=== PATIENT | male | born 1955 | race Caucasian/White ===

== ENCOUNTER 2016-08-17 11:41 | Outpatient (CLI) | payer OTHER ==
[2013-09-02 10:15] VITALS: BMI 22.9
--- NOTE | 2016-08-17 13:00 | DI ---
EXAM: Five view cervical spine COMPARISON: None HISTORY: Neck pain FINDINGS: There is no acute fracture or subluxation. The vertebrae have normal height and alignment. The disk spaces are well maintained. There is some mild degenerative change noted otherwise. Obliq ue views demonstrate widely patent neural foramina The prevertebral soft tissues are unremarkable. The facets maintain appropriate alignment. The dens is intact on the open mouth view. The posterio r right fifth rib demonstrates either postoperative or post traumatic changes. IMPRESSION: 1. Mild degenerative changes of the cervical spine as described. No acute abnormality. 2. Postoperative or post-traumatic changes involving the right fifth rib.
--- NOTE | 2016-08-17 13:02 | DI ---
EXAM: Four views of the lumbar spine HISTORY: Arthropathy with previous lumbar spine surgery. COMPARISON: CT abdomen pelvis 03/13/2010 FINDINGS: There is posterior fusion hardware screws from L4-S1. There is vertebral body stabilizati on shaunna in the sacrum extending up through L4 as well. There is no evidence of hardware fracture or loosening. There is mild scattered facet arthropathy and anterior osteophyte formation. There is q uestionable narrowing of the neural foramen at L4-L5 and L5-S1. IMPRESSION: 1. Fusion hardware and surgical hardware from L4-S1 with no evidence of hardware loosening or fract ure. 2. Scattered degenerative disease in the lower lumbar spine with neural foraminal narrowing noted L 5-S1 and questionable neural foraminal narrowing at L4-L5.
== END 2016-08-17 11:42 | disposition home or self-care (01) ==
LOC: RAD 11:41
PROVIDERS: ATTEND Pain Medicine Interventional Pain Medicine
DX: M51.16 Intervertebral disc disorders with radiculopathy, lumbar region (principal); M51.17 Intervertebral disc disorders with radiculopathy, lumbosacral region; M47.812 Spondylosis without myelopathy or radiculopathy, cervical region; M47.813 Spondylosis without myelopathy or radiculopathy, cervicothoracic region; M96.1 Postlaminectomy syndrome, not elsewhere classified; M50.31 Other cervical disc degeneration, high cervical region; M50.33 Other cervical disc degeneration, cervicothoracic region; M51.36 Other intervertebral disc degeneration, lumbar region; M51.37 Other intervertebral disc degeneration, lumbosacral region; M50.320 Other cervical disc degeneration, mid-cervical region, unspecified level

== ENCOUNTER 2017-01-25 10:13 | Inpatient (IN) ==
[2017-01-25] MEDS ORDERED: ATROPINE SULFATE PFS IVP PRN (10:36)
[2017-01-25] MEDS ORDERED: VISTARIL INJ IM PRN (10:36)
[2017-01-25] MEDS ORDERED: TYLENOL PO PRN (10:36)
[2017-01-25] MEDS ORDERED: NITROSTAT SL PRN (10:36)
[2017-01-25] MEDS ORDERED: LOMOTIL PO PRN (10:53)
[2017-01-25 11:12] LABS: ABG BASE EXCESS 0 (-2.0-2.0); ABG HCO3 23.6 (22.0-26.0); ABG PCO2 34.2 mmHg (35-45); ABG PH 7.446 (7.35-7.45); ABG TCO2 25 (22.0-28.0)
[2017-01-25 11:24] VITALS: BMI 23.3
[2017-01-25 11:29] LABS: BASOPHILS % (AUTO) 0.3 % (0.0-3.0); EOSINOPHILS # (AUTO) 0.2 K/ul (0.0-0.7); EOSINOPHILS % (AUTO) 1.9 % (0.0-7.0); HEMATOCRIT 38.3 % (42.0-52.0); HEMOGLOBIN 13.8 g/dl (14.0-18.0); IMMATURE GRANULOCYTE % (AUTO) 0.4 % (0.0-5.0); LYMPHOCYTES % (AUTO) 29.4 (10.0-50.0); MEAN CORPUSCULAR HEMOGLOBIN 33.7 pg (27.0-31.0); MEAN CORPUSCULAR VOLUME 93.6 fl (80.0-94.0); MONOCYTES % (AUTO) 10.3 (0-10); NEUTROPHILS # (AUTO) 5.8 K/ul (2.0-6.9); NEUTROPHILS % (AUTO) 57.7; PLATELET COUNT 223 10^3/uL (140-440); RED BLOOD COUNT 4.09 10^6/ul (4.70-6.10); WHITE BLOOD COUNT 10.09 K/ul (4.2-10.2)
[2017-01-25] MEDS: ROCEPHIN 1 GM in SODIUM CHLORIDE 50 ML IV SCH (11:32)
[2017-01-25] MEDS: DEXTROSE 5%-1/2NS IV SOLUTION 1,000 ML IV SCH ×2 (11:32→22:25)
[2017-01-25] MEDS: ZOFRAN 4 MG/2 ML IVP PRN ×2 (11:58→20:53)
[2017-01-25] MEDS ORDERED: NON-FORMULARY MEDICATION (Citalopram Hydrobromide [Celexa] 40 MG) PO SCH ×22 (12:00)
[2017-01-25 12:08] LABS: ALANINE AMINOTRANSFERASE 7 U/L (12-78); ALBUMIN 3.5 g/dL (3.4-5.0); ALBUMIN/GLOBULIN RATIO 1.35; ALKALINE PHOSPHATASE 53 U/L (56-119); ANION GAP 10.2; ASPARTATE AMINO TRANSFERASE 8 U/L (15-37); BILIRUBIN,TOTAL 0.44 mg/dL (0.00-1.20); BLOOD UREA NITROGEN 10 mg/dL (7-18); BUN/CREATININE RATIO 12.34; CARBON DIOXIDE 26 mmol/L (21-32); CHLORIDE 106 mmol/L (98-107); CREATINE KINASE 21 U/L; CREATININE 0.81 mg/dL (0.60-1.10); GLUCOSE 94 mg/dL (70-100); MYOGLOBIN 15 ng/ml; POTASSIUM 3.2 mmol/L (3.5-5.1); SODIUM 139 mmol/L (136-145); TOTAL PROTEIN 6.1 g/dL (6.4-8.2)
[2017-01-25] MEDS: PLAVIX PO SCH (14:26)
--- NOTE | 2017-01-25 15:07 | DI ---
EXAM: Single AP view of the chest HISTORY: Chronic obstructive pulmonary disease. COMPARISON: Chest x-ray 09/02/2013 FINDINGS: Cardiomediastinal silhouette is unchanged. There is no pneumothorax. There is blunting t he costophrenic angles bilaterally. There is no acute consolidation, nodule or mass. The osseous s tructures are unchanged. IMPRESSION: 1. Blunting of the costophrenic angles may represent pleural parenchymal scarring versus small effu sions. 2. No acute consolidation.
[2017-01-25 16:30] LABS: BILIRUBIN,URINE Negative (NEGATIVE); KETONES,URINE Negative (NEGATIVE); LEUKOCYTE ESTERASE ,URINE Negative (NEGATIVE); NITRITE,URINE Negative (NEGATIVE); PROTEIN,URINE Negative (NEGATIVE); URINE, BLOOD 1+ (NEGATIVE)
[2017-01-25 16:31] LABS: ADD URINE MICROSCOPIC YES
[2017-01-25] MEDS: MORPHINE 4 MG/ML SYRINGE IVP PRN (17:54)
[2017-01-25 19:28] LABS: CREATINE KINASE 19 U/L; MYOGLOBIN 16 ng/ml
[2017-01-25] MEDS: ABILIFY PO SCH (20:21)
[2017-01-25] MEDS: MINIPRESS PO SCH (20:22)
[2017-01-25] MEDS: LIPITOR PO SCH (20:22)
[2017-01-25] MEDS ORDERED: NON-FORMULARY MEDICATION (Prazosin Hcl [Prazosin Hcl] 2 MG) PO SCH (21:00)
[2017-01-25] MEDS ORDERED: ARIPIPRAZOLE 20 MG PO SCH (21:00)
[2017-01-26] MEDS: MORPHINE 4 MG/ML SYRINGE IVP PRN (01:03)
[2017-01-26 04:57] LABS: BASOPHILS % (AUTO) 0.4 % (0.0-3.0); EOSINOPHILS # (AUTO) 0.6 K/ul (0.0-0.7); EOSINOPHILS % (AUTO) 5.8 % (0.0-7.0); IMMATURE GRANULOCYTE % (AUTO) 0.3 % (0.0-5.0); LYMPHOCYTES # (AUTO) 4.1 K/uL (0.60-3.4); LYMPHOCYTES % (AUTO) 42.4 (10.0-50.0); MEAN CORPUSCULAR HEMOGLOBIN 33.6 pg (27.0-31.0); MEAN CORPUSCULAR HGB CONC 35.1 (31.8-35.4); MEAN CORPUSCULAR VOLUME 95.6 fl (80.0-94.0); MONOCYTES # (AUTO) 0.9 K/uL (0.4-2.0); MONOCYTES % (AUTO) 9.3 (0-10); NEUTROPHILS # (AUTO) 4.1 K/ul (2.0-6.9); NEUTROPHILS % (AUTO) 41.8; PLATELET COUNT 219 10^3/uL (140-440); RED BLOOD COUNT 3.87 10^6/ul (4.70-6.10); WHITE BLOOD COUNT 9.71 K/ul (4.2-10.2)
[2017-01-26 05:26] LABS: ALANINE AMINOTRANSFERASE < 6 U/L (12-78); ALBUMIN 3.2 g/dL (3.4-5.0); ALBUMIN/GLOBULIN RATIO 1.28; ALKALINE PHOSPHATASE 55 U/L (56-119); ANION GAP 13.6; ASPARTATE AMINO TRANSFERASE 8 U/L (15-37); BILIRUBIN,TOTAL 0.52 mg/dL (0.00-1.20); BLOOD UREA NITROGEN 6 mg/dL (7-18); BUN/CREATININE RATIO 7.31; CALCIUM 8.5 mg/dL (8.2-10.2); CARBON DIOXIDE 26 mmol/L (21-32); CHLORIDE 108 mmol/L (98-107); CREATININE 0.82 mg/dL (0.60-1.10); GLUCOSE 99 mg/dL (70-100); POTASSIUM 3.6 mmol/L (3.5-5.1); SODIUM 144 mmol/L (136-145); TOTAL PROTEIN 5.7 g/dL (6.4-8.2)
[2017-01-26] MEDS ORDERED: PROTONIX PO PRN (08:23)
[2017-01-26] MEDS ORDERED: PROTONIX PO STA (08:23)
[2017-01-26] MEDS: ASPIRIN EC PO SCH (08:26)
[2017-01-26] MEDS: ROCEPHIN 1 GM in SODIUM CHLORIDE 50 ML IV SCH (08:26)
[2017-01-26] MEDS: PLAVIX PO SCH (08:26)
[2017-01-26] MEDS: CELEXA PO SCH (08:26)
[2017-01-26] MEDS: VALIUM PO SCH ×3 (08:50→20:07)
[2017-01-26] MEDS: MS CONTIN PO SCH ×2 (08:50→20:06)
[2017-01-26] MEDS ORDERED: CELEXA PO SCH (09:00)
[2017-01-26] MEDS ORDERED: NON-FORMULARY MEDICATION (Morphine Sulfate [Morphine Sulfate Er] 60 MG) PO SCH (09:00)
--- NOTE | 2017-01-26 09:42 | PCM.PROG ---
Attending Provider: ATTENDING PROVIDER: Dr. SERENA MCCORMICK DATE OF SERVICE: 01/26/17 SUBJECTIVE: This 61 year old WHITE/ M was hospitalized 01/25/17. The patient is seen with Anika, Nurse Practitioner. The patient is somewhat better, alert, lying in bed. He has generalized achiness, some nausea during the night but no vomiting. No diarrhea. He feels weak and tired. Stools are negative for C. diff. REVIEW OF SYSTEMS: CONSTITUTIONAL: Fatique, weakness. No night sweats. No fever or chills. HEENT: Eyes: No visual changes. No eye pain. No eye discharge. ENT: No runny nose. No epistaxis. No sinus pain. No odynophagia. No congestion. RESPIRATORY: No cough, no congestion. No hemoptysis. CARDIOVASCULAR: No angina symptoms. No CHF symptoms. No atypical chest pain for CAD. No palpitations. No shortness of breath. GASTROINTESTINAL: Nausea. Diarrhea. No abdominal pain. No hematemesis. No hematochezia. GENITOURINARY: No urgency. No frequency. No dysuria. No hematuria. No obstructive symptoms. No discharge. No pain. No significant abnormal bleeding. MUSCULOSKELETAL: Generalized achiness. NEUROLOGICAL: Awake, alert, oriented to time, place and person. No headache. No neck pain. No syncope. No seizures. No dizziness. PSYCHIATRIC: Not anxious. No depression. No suicidal thoughts. No homicidal thoughts. SKIN: No rash. No lesions. No wounds. ENDOCRINE: No unexplained weight loss. No weight gain. HEMATOLOGIC/LYMPHATIC: No anemia. No purpura. No petechiae. No prolonged or excessive bleeding. No palpable lymph nodes. PHYSICAL EXAMINATION: GENERAL: The patient is awake, alert and oriented, lying in bed in no distress. VITAL SIGNS: Temperature 98.0 F, Pulse 78, Respiratory Rate 20, BP 136/89, Pulse Ox 100% HEENT: Head normocephalic, atraumatic. Eyes: Extraocular muscles are intact. Pupils are equal, round and reactive to light and accommodation. Ears: No lesions. Nose appeared normal. Throat: No exudate or erythema. NECK: Supple. No JVD, no carotid bruit. No lymphadenopathy or thyromegaly. LUNGS: Decreased bilateral breath sounds. Clear to auscultation. Percussion note normal. Chest symmetrical. HEART: S1, S2, no S3. No murmurs. No cyanosis or clubbing. No ascites. Pulses: Dorsalis pedis and posterior tibial pulses +1 to +2 both sides. ABDOMEN: Soft. Non-tender. Bowel sounds active. No CVA tenderness. No mass felt. EXTREMITIES: No edema. Full range of motion of all extremities, equal. NEUROLOGIC: No focal deficit. Cranial nerves II through XII are grossly intact. No headache, no double vision or headache. SKIN: Not dry. Intact. Turgor-normal. LYMPHATIC: No palpable lymph nodes/no lymphedema. MUSCULOSKELETAL: Normal joints with no swelling. Muscle tone is normal. LAB REVIEW: 01/26/17 04:30 01/26/17 04:30 01/26/17 04:30: WBC 9.71, RBC 3.87 L, Hgb 13.0 L, Hct 37.0 L, MCV 95.6 H, MCH 33.6 H, MCHC 35.1, RDW Coeff of Luzma 12.8, Plt Count 219, Immature Gran % (Auto) 0.3, Neut % (Auto) 41.8, Lymph % (Auto) 42.4, [place] % (Auto) 9.3, Eos % (Auto) 5.8, Baso % (Auto) 0.4, Immature Gran # (Auto) 0.0, Neut # 4.1, Lymph # 4.1 H, [place] # 0.9, Eos # 0.6, Baso # 0.0, Sodium 144, Potassium 3.6, Chloride 108 H, Carbon Dioxide 26, Anion Gap 13.6, BUN 6 L, Creatinine 0.82, Estimated GFR (MDRD ) 96.00, BUN/Creatinine Ratio 7.31, Glucose 99, Calcium 8.5, Total Bilirubin 0.52, AST 8 L, ALT < 6 L, Alkaline Phosphatase 55 L, Total Protein 5.7 L, Albumin 3.2 L, Globulin 2.5, Albumin/Globulin Ratio 1.28 01/25/17 18:45: Total Creatine Kinase 19, Myoglobin 16, Troponin I < 0.0100 01/25/17 14:35: Urine Color Yellow, Urine Clarity Clear, Urine pH 7.0, Ur Specific [place] 1.015, Urine Protein Negative, Urine Glucose (UA) Negative, Urine Ketones Negative, Urine Blood 1+, Urine Nitrite Negative, Urine Bilirubin Negative, Urine Urobilinogen 0.2, Ur Leukocyte Esterase Negative, Urine Microscopic RBC 2-5, Ur Squamous Epith Cells Not present 01/25/17 11:20: WBC 10.09, RBC 4.09 L, Hgb 13.8 L, Hct 38.3 L, MCV 93.6, MCH 33.7 H, MCHC 36.0 H, RDW Coeff of Luzma 12.3, Plt Count 223, Immature Gran % (Auto ) 0.4, Neut % (Auto) 57.7, Lymph % (Auto) 29.4, [place] % (Auto) 10.3 H, Eos % ( Auto) 1.9, Baso % (Auto) 0.3, Immature Gran # (Auto) 0.0, Neut # 5.8, Lymph # 3.0, [place] # 1.0, Eos # 0.2, Baso # 0.0, Sodium 139, Potassium 3.2 L, Chloride 106, Carbon Dioxide 26, Anion Gap 10.2, BUN 10, Creatinine 0.81, Estimated GFR ( MDRD) 98.00, BUN/Creatinine Ratio 12.34, Glucose 94, Calcium 9.0, Total Bilirubin 0.44, AST 8 L, ALT 7 L, Alkaline Phosphatase 53 L, Total Creatine Kinase 21, Myoglobin 15, Troponin I < 0.0100, Total Protein 6.1 L, Albumin 3.5, Globulin 2.6, Albumin/Globulin Ratio 1.35, TSH 0.782 01/25/17 11:00: Puncture Site R rad, O2 Saturation 97.0, ABG pH 7.446, ABG pCO2 34.2 L, ABG pO2 84.0 L, ABG HCO3 23.6, ABG Total CO2 25, ABG Base Excess 0, Robert Test +, FiO2 % 21.0 ASSESSMENT: 1. Dehydration 2. Acute gastroenteritis 3. COPD exacerbation PLAN: 1. Protonix 40 mg daily 2. Resume Valium 5 mg t.i.d. 3. Resume Morphine 60 mg p.o. b.i.d. 4. D/C IV Morphine 5. Continue iv fluids 6. BRAT diet Plan and coordination of the patient's care discussed in the presence of Hide Curer and nurse. CONDITION: Stable SCRIBED BY: CARMELO MOHAMUD Sub Arc Operator scribed while in presence of service performed by Dr. SERENA MCCORMICK/ANIKA CUELLAR APRN on 01/26/17 ([id number])
[2017-01-26] MEDS: DEXTROSE 5%-1/2NS IV SOLUTION 1,000 ML IV SCH (11:25)
--- NOTE | 2017-01-26 11:33 | HP ---
DATE OF SERVICE: 01/25/17 REASON FOR HOSPITALIZATION/HISTORY OF PRESENT ILLNESS: This is a 61-year-old male who presented to the office with vomiting times four days, unable to keep anything down, chills and fever. He has had diarrhea times four to five days. He has decreased urine output. He has not eaten times three days. REVIEW OF SYSTEMS: CONSTITUTIONAL: Fever and fatigue. HEENT: No sinus drainage, no sore throat. RESPIRATORY: Cough productive of yellow sputum. CARDIOVASCULAR: Mild shortness of breath. No atypical chest pain for coronary artery disease. No angina, CHF symptoms or palpitations. GASTROINTESTINAL: Nausea, vomiting and diarrhea. No melena or abdominal pain. No GERD. GENITOURINARY: No hematuria, no prostatism, no polyuria. MD SENIOR RESEARCH SCIENTIST: Dizziness, headache. No blackout, no double vision. MUSCULOSKELETAL: Osteoarthritis pain. ENDOCRINE: Weight loss of 3 lbs SKIN: Dry, no rash. PSYCHIATRIC: Not anxious, no depression, no suicidal thoughts, no homicidal thoughts. Normal behavior. PAST MEDICAL HISTORY: 1. COPD 2. BIPOLAR 3. INSOMNIA PAST SURGICAL HISTORY: 1. THREE BACK SURGERIES 2. RIGHT PARTIAL PNEUMONECTOMY SOCIAL HISTORY: Tobacco - yes, one pack per day for 30 years. Alcohol - no. to [place]. No ilicit drug use. Two boys who are healthy. Disabled. FAMILY HISTORY: Father with histoplasmosis. Mother with CHF. Brother - 10- 3 and 7 alive - CAD, COPD, Hypertension. Six sisters, all alive with unknown health issues. MEDICATIONS: 1. Lipitor 10 mg daily 2. Prazosin 2 mg h.s. 3. Valium 5 mg t.i.d. 4. Morphine Sul. 60 mg b.i.d. 5. Abilify 20 mg h.s. 6. Celexa 40 mg h.s. 7. Plavix 75 mg daily ALLERGIES: NKDA PHYSICAL EXAMINATION: V/S: Pulse 90, BP 110/70, temperature 99.3, 02 sat 91%. Weight 164.4, height 5' 10", BMI 23.6 GENERAL APPEARANCE: Oriented times three. Looks pale. HEENT: Normal. NECK: No JVP, no bruits. RESPIRATORY: Lungs have diminished breeath sounds; clear. CARDIOVASCULAR: S1, S2, no S3, no murmurs. No cyanosis, clubbing. No ascites. GI/ABDOMEN: No tenderness. Bowel sounds are active. EXTREMITIES: No edema, pulses +1, equal. MD SENIOR RESEARCH SCIENTIST: Deep tendon reflexes, sensory, motor and gait all normal. SKIN: Dry. LAB DATA/ABG'S: Initial ABGs FI02 21, pH 7.446, pc02 34.2, p02 84, bicarb 23.6, 02 sat 97%. White blood count 10.09, red blood count 4.09, hemoglobin 13.8, hematocrit 38.3 , platelets 223. Sodium 139, potassium 3.2, chloride 106, c02 26, BUN 10, creatinine 0.81, glucose 94. CK 21, troponin undetectable. Myoglobin 15. TSH 0.782. ASSESSMENT: 1. DEHYDRATION 2. ACUTE GASTROENTERITIS 3. COPD - ACUTE EXACERBATION 4. DYSLIPIDEMIA 5. DEPRESSION 6. BIPOLAR FOLLOWED BY DR. THORNTON 7. SMOKING/COPD 8. HISTORY OF BACK SURGERY (L-SPINE) 9. STATUS POST CHOLECYSTECTOMY 10. RIGHT LOWER LOBE HISTOPLASMOSIS 11. CVA RECURRENT, DR. HARTLEY 2013 12. PNEUMONECTOMY (PARTIAL) RIGHT, BENIGN PLAN: 1. Admit with routine telemetry orders 2. 02 as needed 2L/cannula 3. CBC, CMP STAT then daily 4. ABG STAT 5. 1000 cc D5 1/2 NS q.12hourly 6. Rocephin 1 gm IV p.o. 24 hours 7. Sputum C & S 8. Blood cultures times two 9. Stool cultures times two 10. Zofran 4 mg IV now and 8 hours p.r.n. 11. Lomotil 2.5 mg p.o. p.r.n. for diarrhea b.i.d. 12. T4 and TSH 13. Continue all home medications 14. Daily CBC and CMP. TIME SPENT: More than 70 minutes. MTDD
[2017-01-26] MEDS: ABILIFY PO SCH (20:07)
[2017-01-26] MEDS: MINIPRESS PO SCH (20:07)
[2017-01-26] MEDS: LIPITOR PO SCH (20:07)
[2017-01-27] MEDS: DEXTROSE 5%-1/2NS IV SOLUTION 1,000 ML IV SCH (02:35)
[2017-01-27 04:52] LABS: BASOPHILS # (AUTO) 0.1 K/uL (0-0.2); BASOPHILS % (AUTO) 0.7 % (0.0-3.0); EOSINOPHILS # (AUTO) 0.6 K/ul (0.0-0.7); EOSINOPHILS % (AUTO) 6.6 % (0.0-7.0); HEMATOCRIT 35.6 % (42.0-52.0); HEMOGLOBIN 12.3 g/dl (14.0-18.0); IMMATURE GRANULOCYTE % (AUTO) 0.3 % (0.0-5.0); LYMPHOCYTES # (AUTO) 4.1 K/uL (0.60-3.4); LYMPHOCYTES % (AUTO) 46.5 (10.0-50.0); MEAN CORPUSCULAR HEMOGLOBIN 33.6 pg (27.0-31.0); MEAN CORPUSCULAR HGB CONC 34.6 (31.8-35.4); MEAN CORPUSCULAR VOLUME 97.3 fl (80.0-94.0); MONOCYTES # (AUTO) 0.9 K/uL (0.4-2.0); MONOCYTES % (AUTO) 10.1 (0-10); NEUTROPHILS # (AUTO) 3.1 K/ul (2.0-6.9); NEUTROPHILS % (AUTO) 35.8; PLATELET COUNT 193 10^3/uL (140-440); RED BLOOD COUNT 3.66 10^6/ul (4.70-6.10); WHITE BLOOD COUNT 8.79 K/ul (4.2-10.2)
[2017-01-27 05:16] LABS: ALBUMIN/GLOBULIN RATIO 1.36; ANION GAP 13.2; BILIRUBIN,TOTAL 0.37 mg/dL (0.00-1.20); BUN/CREATININE RATIO 9.89; CALCIUM 8.5 mg/dL (8.2-10.2); CREATININE 0.91 mg/dL (0.60-1.10); POTASSIUM 4.2 mmol/L (3.5-5.1); TOTAL PROTEIN 5.2 g/dL (6.4-8.2)
[2017-01-27] MEDS: CELEXA PO SCH (08:57)
[2017-01-27] MEDS: MS CONTIN PO SCH ×2 (08:58→20:00)
[2017-01-27] MEDS: VALIUM PO SCH ×3 (08:58→20:00)
[2017-01-27] MEDS: PLAVIX PO SCH (08:58)
[2017-01-27] MEDS: ROCEPHIN 1 GM in SODIUM CHLORIDE 50 ML IV SCH (08:58)
[2017-01-27] MEDS: ASPIRIN EC PO SCH (08:58)
[2017-01-27] MEDS: MINIPRESS PO SCH (20:00)
[2017-01-27] MEDS: ABILIFY PO SCH (20:01)
[2017-01-27] MEDS: LIPITOR PO SCH (20:01)
[2017-01-28 06:00] LABS: BASOPHILS % (AUTO) 0.4 % (0.0-3.0); EOSINOPHILS # (AUTO) 0.7 K/ul (0.0-0.7); EOSINOPHILS % (AUTO) 7.3 % (0.0-7.0); HEMATOCRIT 36.9 % (42.0-52.0); HEMOGLOBIN 12.8 g/dl (14.0-18.0); IMMATURE GRANULOCYTE % (AUTO) 0.2 % (0.0-5.0); LYMPHOCYTES # (AUTO) 4.5 K/uL (0.60-3.4); LYMPHOCYTES % (AUTO) 48.7 (10.0-50.0); MEAN CORPUSCULAR HEMOGLOBIN 33.7 pg (27.0-31.0); MEAN CORPUSCULAR HGB CONC 34.7 (31.8-35.4); MEAN CORPUSCULAR VOLUME 97.1 fl (80.0-94.0); MONOCYTES # (AUTO) 0.9 K/uL (0.4-2.0); MONOCYTES % (AUTO) 9.2 (0-10); NEUTROPHILS # (AUTO) 3.2 K/ul (2.0-6.9); NEUTROPHILS % (AUTO) 34.2; PLATELET COUNT 203 10^3/uL (140-440); WHITE BLOOD COUNT 9.26 K/ul (4.2-10.2)
[2017-01-28 06:21] LABS: ALBUMIN 3.2 g/dL (3.4-5.0); ALBUMIN/GLOBULIN RATIO 1.45; ANION GAP 13.8; BILIRUBIN,TOTAL 0.4 mg/dL (0.00-1.20); BUN/CREATININE RATIO 13.09; CALCIUM 8.7 mg/dL (8.2-10.2); CREATININE 0.84 mg/dL (0.60-1.10); POTASSIUM 3.8 mmol/L (3.5-5.1); TOTAL PROTEIN 5.4 g/dL (6.4-8.2)
[2017-01-28] MEDS: MS CONTIN PO SCH ×2 (08:36→20:00)
[2017-01-28] MEDS: PLAVIX PO SCH (08:37)
[2017-01-28] MEDS: ASPIRIN EC PO SCH (08:37)
[2017-01-28] MEDS: CELEXA PO SCH (08:37)
[2017-01-28] MEDS: ROCEPHIN 1 GM in SODIUM CHLORIDE 50 ML IV SCH (08:37)
[2017-01-28] MEDS: VALIUM PO SCH ×3 (09:00→20:00)
[2017-01-28] MEDS: ZOFRAN 4 MG/2 ML IVP PRN (10:50)
[2017-01-28] MEDS: PROTONIX PO SCH (16:35)
[2017-01-28] MEDS: ABILIFY PO SCH (19:59)
[2017-01-28] MEDS: LIPITOR PO SCH (20:00)
[2017-01-28] MEDS: MINIPRESS PO SCH (20:00)
[2017-01-29 04:57] LABS: BASOPHILS # (AUTO) 0.1 K/uL (0-0.2); BASOPHILS % (AUTO) 0.7 % (0.0-3.0); EOSINOPHILS # (AUTO) 0.7 K/ul (0.0-0.7); EOSINOPHILS % (AUTO) 8.1 % (0.0-7.0); HEMATOCRIT 37.8 % (42.0-52.0); HEMOGLOBIN 12.7 g/dl (14.0-18.0); IMMATURE GRANULOCYTE % (AUTO) 0.1 % (0.0-5.0); LYMPHOCYTES # (AUTO) 4.1 K/uL (0.60-3.4); LYMPHOCYTES % (AUTO) 47.2 (10.0-50.0); MEAN CORPUSCULAR HEMOGLOBIN 33.1 pg (27.0-31.0); MEAN CORPUSCULAR HGB CONC 33.6 (31.8-35.4); MEAN CORPUSCULAR VOLUME 98.4 fl (80.0-94.0); MONOCYTES # (AUTO) 0.9 K/uL (0.4-2.0); MONOCYTES % (AUTO) 10.8 (0-10); NEUTROPHILS # (AUTO) 2.9 K/ul (2.0-6.9); NEUTROPHILS % (AUTO) 33.1; PLATELET COUNT 215 10^3/uL (140-440); RED BLOOD COUNT 3.84 10^6/ul (4.70-6.10); WHITE BLOOD COUNT 8.62 K/ul (4.2-10.2)
[2017-01-29 05:27] LABS: ALBUMIN 3.1 g/dL (3.4-5.0); ALBUMIN/GLOBULIN RATIO 0.94; ANION GAP 14.1; BILIRUBIN,TOTAL 0.28 mg/dL (0.00-1.20); BUN/CREATININE RATIO 15.38; CALCIUM 8.9 mg/dL (8.2-10.2); CHOL/HDL RATIO 2.8 (4.5-6.4); CREATININE 0.91 mg/dL (0.60-1.10); POTASSIUM 4.1 mmol/L (3.5-5.1); TOTAL PROTEIN 6.4 g/dL (6.4-8.2)
[2017-01-29] MEDS: PROTONIX PO SCH (05:42)
[2017-01-29] MEDS: ASPIRIN EC PO SCH (09:01)
[2017-01-29] MEDS: CELEXA PO SCH (09:01)
[2017-01-29] MEDS: MS CONTIN PO SCH (09:02)
[2017-01-29] MEDS: PLAVIX PO SCH (09:02)
[2017-01-29] MEDS: VALIUM PO SCH ×2 (09:03→15:11)
[2017-01-29] MEDS: ROCEPHIN 1 GM in SODIUM CHLORIDE 50 ML IV SCH (09:03)
--- NOTE | 2017-01-29 09:04 | PN ---
DATE OF SERVICE: 01/26/17 SUBJECTIVE: The patient seen with Nurse Practitioner. The patient is a 61 year old white male was hospitalized from the office with dehydrated and acute gastroenteritis. The patient's condition has improved and his hydration status has improved. REVIEW OF SYSTEMS: CONSTITUTIONAL: No night sweats. No fatigue, malaise, lethargy. No fever or chills. HEENT: Eyes: No visual changes. No eye pain. No eye discharge. ENT: No runny nose. No epistaxis. No sinus pain. No sore throat. No odynophagia. No congestion. RESPIRATORY: No cough, no congestion. No hemoptysis. CARDIOVASCULAR: No angina symptoms. No CHF symptoms. No atypical chest pain for CAD. No palpitations. No shortness of breath. GASTROINTESTINAL: No abdominal pain. No nausea or vomiting. Diarrhea has been under control. No hematemesis. No hematochezia.He feels hungry. GENITOURINARY: No urgency. No frequency. No dysuria. No hematuria. No obstructive symptoms. No discharge. No pain. No significant abnormal bleeding. MUSCULOSKELETAL: No musculoskeletal pain; no joint swelling. NEUROLOGICAL: No headache. No neck pain. No syncope. No seizures. No dizziness. PSYCHIATRIC: Not anxious. No depression. No suicidal thoughts. No homicidal thoughts. SKIN: No rash. No lesions. No wounds. ENDOCRINE: No unexplained weight loss. No weight gain. HEMATOLOGIC/LYMPHATIC: No anemia. No purpura. No petechiae. No prolonged or excessive bleeding. No palpable lymph nodes. PHYSICAL EXAMINATION: VITAL SIGNS: Stable. Blood pressure 136/89. HEENT: Head normocephalic, atraumatic. Eyes: Extraocular muscles are intact. Pupils are equal, round and reactive to light and accommodation. Ears: No lesions. Nose appeared normal. Throat: No exudate or erythema. NECK: Supple. No JVD, no carotid bruit. No lymphadenopathy or thyromegaly. LUNGS: Decreased breath sounds but clear to auscultation. Percussion note normal. Chest symmetrical. HEART: S1, S2, no S3. No murmurs. No cyanosis or clubbing. No ascites. Pulses: Dorsalis pedis and posterior tibial pulses +1 to +2 both sides. ABDOMEN: Soft. Nontender. Bowel sounds active. No CVA tenderness. No mass felt. EXTREMITIES: No edema. Full range of motion of all extremities, equal. NEUROLOGIC: No focal deficit. Cranial nerves II through XII are grossly intact. No headache, no double vision or headache. SKIN: Not dry. Intact. Turgor - normal. LYMPHATIC: No palpable lymph nodes/no lymphedema. MUSCULOSKELETAL: Normal joints with no swelling. Muscle tone is normal. PLAN: 1. Advanced diet to soft diet as tolerated 2. C-Diff negative 3. Counseling for smoking done. CONDITION: Stable. TIME SPENT: More than 30 minutes. Plan and coordination of the patient's care discussed in the presence of nurse. TRESSA
--- NOTE | 2017-01-29 09:12 | PCM.PROG ---
Attending Provider: ATTENDING PROVIDER: Dr. SERENA MCCORMICK DATE OF SERVICE: 01/29/17 SUBJECTIVE: This 61 year old WHITE/ M was hospitalized 01/25/17. The patient is seen with Anika Etienne APRN. He states he feels some better and is eating well despite nausea. He has less cough. REVIEW OF SYSTEMS: CONSTITUTIONAL: No night sweats. No fatigue, malaise, lethargy. No fever or chills. HEENT: Eyes: No visual changes. No eye pain. No eye discharge. ENT: No runny nose. No epistaxis. No sinus pain. No odynophagia. No congestion. RESPIRATORY: No cough, no congestion. No hemoptysis. CARDIOVASCULAR: No angina symptoms. No CHF symptoms. No atypical chest pain for CAD. No palpitations. No shortness of breath. GASTROINTESTINAL: Appetite is good despite nausea. No abdominal pain. No vomiting. No diarrhea or constipation. No hematemesis. No hematochezia. GENITOURINARY: No urgency. No frequency. No dysuria. No hematuria. No obstructive symptoms. No discharge. No pain. No significant abnormal bleeding. MUSCULOSKELETAL: No musculoskeletal pain; no joint swelling. NEUROLOGICAL: Awake, alert, oriented to time, place and person. No headache. No neck pain. No syncope. No seizures. No dizziness. PSYCHIATRIC: Not anxious. No depression. No suicidal thoughts. No homicidal thoughts. SKIN: No rash. No lesions. No wounds. ENDOCRINE: No unexplained weight loss. No weight gain. HEMATOLOGIC/LYMPHATIC: No anemia. No purpura. No petechiae. No prolonged or excessive bleeding. No palpable lymph nodes. PHYSICAL EXAMINATION: GENERAL: The patient is awake, alert and oriented, sitting up in bed in no distress. VITAL SIGNS: Temperature 98.4 F, Pulse 79, Respiratory Rate 16, BP 104/71, Pulse Ox 97% HEENT: Head normocephalic, atraumatic. Eyes: Extraocular muscles are intact. Pupils are equal, round and reactive to light and accommodation. Ears: No lesions. Nose appeared normal. Throat: No exudate or erythema. NECK: Supple. No JVD, no carotid bruit. No lymphadenopathy or thyromegaly. LUNGS: Diminished breath sounds bilaterally. Percussion note normal. Chest symmetrical. HEART: S1, S2, no S3. No murmurs. No cyanosis or clubbing. No ascites. Pulses: Dorsalis pedis and posterior tibial pulses +1 to +2 both sides. ABDOMEN: Soft. Non-tender. Bowel sounds active. No CVA tenderness. No mass felt. EXTREMITIES: No edema. Full range of motion of all extremities, equal. NEUROLOGIC: No focal deficit. Cranial nerves II through XII are grossly intact. No headache, no double vision or headache. SKIN: Not dry. Intact. Turgor-normal. LYMPHATIC: No palpable lymph nodes/no lymphedema. MUSCULOSKELETAL: Normal joints with no swelling. Muscle tone is normal. LAB REVIEW: 01/29/17 04:45 01/29/17 04:45 01/29/17 04:45: WBC 8.62, RBC 3.84 L, Hgb 12.7 L, Hct 37.8 L, MCV 98.4 H, MCH 33.1 H, MCHC 33.6, RDW Coeff of Luzma 12.8, Plt Count 215, Immature Gran % (Auto) 0.1, Neut % (Auto) 33.1, Lymph % (Auto) 47.2, [place] % (Auto) 10.8 H, Eos % (Auto ) 8.1 H, Baso % (Auto) 0.7, Immature Gran # (Auto) 0.0, Neut # 2.9, Lymph # 4.1 H, [place] # 0.9, Eos # 0.7, Baso # 0.1, Sodium 143, Potassium 4.1, Chloride 104, Carbon Dioxide 29, Anion Gap 14.1, BUN 14, Creatinine 0.91, Estimated GFR (MDRD ) 85.00, BUN/Creatinine Ratio 15.38, Glucose 89, Calcium 8.9, Total Bilirubin 0.28, AST 8 L, ALT 7 L, Alkaline Phosphatase 69, Total Protein 6.4, Albumin 3.1 L, Globulin 3.3, Albumin/Globulin Ratio 0.94, Triglycerides 69, Cholesterol 106 , LDL Cholesterol, Calc 54, VLDL Cholesterol 14, HDL Cholesterol 38, Cholesterol /HDL Ratio 2.8 L ASSESSMENT: 1. Dehydration, improved 2. Acute gastroenteritis, with continued nausea 3. COPD exacerbation PLAN: 1. CT scan of abdomen and pelvis without contrast 2. BRAT diet Plan and coordination of the patient's care discussed in the presence of Fusion Juncture Grinder and nurse. CONDITION: Stable SCRIBED BY: CARMELO MOHAMUD, Chairman Emeritus scribed while in presence of service performed by Dr. SERENA MCCORMICK/ANIKA CUELLAR APRN on 01/29/17 ([id number])
--- NOTE | 2017-01-29 09:32 | PN ---
DATE OF SERVICE: 01/27/17 SUBJECTIVE: The patient is a 61 year old white male hospitalized with dehydration, acute gastroenteritis. The patient's acute gastroenteritis has resolved and he wants to be up and about. IV will be discontinued. REVIEW OF SYSTEMS: CONSTITUTIONAL: No night sweats. No fatigue, malaise, lethargy. No fever or chills. HEENT: Eyes: No visual changes. No eye pain. No eye discharge. ENT: No runny nose. No epistaxis. No sinus pain. No sore throat. No odynophagia. No congestion. RESPIRATORY: No cough, no congestion. No hemoptysis. CARDIOVASCULAR: No angina symptoms. No CHF symptoms. No atypical chest pain for CAD. No palpitations. No shortness of breath. GASTROINTESTINAL: No abdominal pain. No nausea or vomiting. No diarrhea or constipation. No hematemesis. No hematochezia. GENITOURINARY: No urgency. No frequency. No dysuria. No hematuria. No obstructive symptoms. No discharge. No pain. No significant abnormal bleeding. MUSCULOSKELETAL: No musculoskeletal pain; no joint swelling. NEUROLOGICAL: No headache. No neck pain. No syncope. No seizures. No dizziness. PSYCHIATRIC: Not anxious. No depression. No suicidal thoughts. No homicidal thoughts. SKIN: No rash. No lesions. No wounds. ENDOCRINE: No unexplained weight loss. No weight gain. HEMATOLOGIC/LYMPHATIC: No anemia. No purpura. No petechiae. No prolonged or excessive bleeding. No palpable lymph nodes. PHYSICAL EXAMINATION: GENERAL: The patient is oriented to time, place and person. VITAL SIGNS: Temperature 97.3, pulse 58, respiratory 12, blood pressure 119/73 and pulse ox 98%. HEENT: Head normocephalic, atraumatic. Eyes: Extraocular muscles are intact. Pupils are equal, round and reactive to light and accommodation. Ears: No lesions. Nose appeared normal. Throat: No exudate or erythema. NECK: Supple. No JVD, no carotid bruit. No lymphadenopathy or thyromegaly. LUNGS: Decreased breath sounds but clear to auscultation. Percussion note normal. Chest symmetrical. HEART: S1, S2, no S3. No murmurs. No cyanosis or clubbing. No ascites. Pulses: Dorsalis pedis and posterior tibial pulses +1 to +2 both sides. ABDOMEN: Soft. Nontender. Bowel sounds active. No CVA tenderness. No mass felt. EXTREMITIES: No edema. Full range of motion of all extremities, equal. NEUROLOGIC: No focal deficit. Cranial nerves II through XII are grossly intact. No headache, no double vision or headache. SKIN: Not dry. Intact. Turgor - normal. LYMPHATIC: No palpable lymph nodes/no lymphedema. MUSCULOSKELETAL: Normal joints with no swelling. Muscle tone is normal. LABS: Hgb 12, hct 35, WBC 8,700 normal differential, creatinine 0.9, BUN 9, potassium 4.2 ASSESSMENT: 1. Acute gastroenteritis, resolved 2. COPD Controlled PLAN: 1. Counseling for smoking done 2. The patient's IV will be discontinued 3. The patient will be put on regular diet 4. The patient will be up and about CONDITION: Stable TIME SPENT: More than 30 minutes. Plan and coordination of the patient's care discussed in the presence of nurse. TRESSA
--- NOTE | 2017-01-29 10:28 | PN ---
DATE OF SERVICE: 01/28/17 SUBJECTIVE: The patient is a 61 year old white male hospitalized with acute gastroenteritis and weakness. The patient's condition has improved. He has been up and about but feeling weak and tired today. REVIEW OF SYSTEMS: CONSTITUTIONAL: No night sweats. [place] weak and tired. No fever or chills. Up and about. HEENT: Eyes: No visual changes. No eye pain. No eye discharge. ENT: No runny nose. No epistaxis. No sinus pain. No sore throat. No odynophagia. No congestion. RESPIRATORY: No cough, no congestion. No hemoptysis. CARDIOVASCULAR: No angina symptoms. No CHF symptoms. No atypical chest pain for CAD. No palpitations. No shortness of breath. GASTROINTESTINAL: No abdominal pain. No nausea or vomiting. No diarrhea or constipation. No hematemesis. No hematochezia. Improved appetite. Had some gargling in the stomach area yesterday but has no diarrhea and no vomiting. GENITOURINARY: No urgency. No frequency. No dysuria. No hematuria. No obstructive symptoms. No discharge. No pain. No significant abnormal bleeding. MUSCULOSKELETAL: No musculoskeletal pain; no joint swelling. NEUROLOGICAL: No headache. No neck pain. No syncope. No seizures. No dizziness. PSYCHIATRIC: Not anxious. No depression. No suicidal thoughts. No homicidal thoughts. SKIN: No rash. No lesions. No wounds. ENDOCRINE: No unexplained weight loss. No weight gain. HEMATOLOGIC/LYMPHATIC: No anemia. No purpura. No petechiae. No prolonged or excessive bleeding. No palpable lymph nodes. PHYSICAL EXAMINATION: GENERAL: The patient is oriented to time, place and person. VITAL SIGNS: Temperature 97.5, pulse 83, respiratory rate 16, blood pressure 104/69 and pulse ox 95%. HEENT: Head normocephalic, atraumatic. Eyes: Extraocular muscles are intact. Pupils are equal, round and reactive to light and accommodation. Ears: No lesions. Nose appeared normal. Throat: No exudate or erythema. NECK: Supple. No JVD, no carotid bruit. No lymphadenopathy or thyromegaly. LUNGS: Decreased breath sounds but clear to auscultation. Percussion note normal. Chest symmetrical. HEART: S1, S2, no S3. No murmurs. No cyanosis or clubbing. No ascites. Pulses: Dorsalis pedis and posterior tibial pulses +1 to +2 both sides. ABDOMEN: Soft. Nontender. Bowel sounds active. No CVA tenderness. No mass felt. EXTREMITIES: No edema. Full range of motion of all extremities, equal. NEUROLOGIC: No focal deficit. Cranial nerves II through XII are grossly intact. No headache, no double vision or headache. SKIN: Not dry. Intact. Turgor - normal. LYMPHATIC: No palpable lymph nodes/no lymphedema. MUSCULOSKELETAL: Normal joints with no swelling. Muscle tone is normal. LABS: Hgb 12.8, hct 36, WBC 9,200 normal differentia, creatinine 0.8, BUN 11 and potassium 3.8 ASSESSMENT: 1. Acute gastroenteritis, resolved 2. Chronic lung disease 3. History of heavy smoking, advised to quit smoking. PLAN: 1. Counseling for smoking done. 2. Activity part discussed. 3. The patient is on Citalopram. Depression is under control with no suicidal or homicidal tendency and AbiliZhongSou is also working. The patient is being followed by Dr. Hunter. CONDITION: Stable The patient is also followed by Pain Management. TIME SPENT: More than 30 minutes. Plan and coordination of the patient's care discussed in the presence of nurse. TRESSA
--- NOTE | 2017-01-29 12:48 | CT ---
Exam: CT of the abdomen pelvis without intravenous or oral contrast. Comparison: 03/13/2010. Reason for exam: Nausea. FINDINGS: Emphysematous changes are seen in the partially imaged lung bases without focal consolida tion or pleural effusion. There is a subtle ground-glass opacity in the left anterior lung base seen on axial image number 12. Image interpretation is limited by the lack of intravenous contrast. The gallbladder has been removed. The liver, spleen, adrenal glands, and pancreas appear grossly unremarkable within the limitations o f a noncontrasted study. No hydronephrosis, hydroureter, or nephrolithiasis is seen in either kidney. No inflammatory changes are seen within the abdominal or pelvic fat. No focal small bowel dilatation or transition point. The appendix is not definitively seen. There are no inflammatory changes in the expected location o f the appendix. No intra-abdominal free air or pelvic free fluid. The bladder is unremarkable. A operative changes are seen in the lumbar spine with pedicle screw and shaunna fixation and interverteb ral body screw placement spanning L4-S1. Atherosclerotic disease is seen within the aorta and distal arterial vasculature. No suspicious appearing osteoblastic or osteolytic lesions. Impression: 1. Subtle ground-glass opacity in the left anterior lung base on axial image number 12. Recommend f ollow-up evaluation and 3-6 months to document resolution. 2. No acute inflammatory findings are seen within the abdomen or pelvis. 3. Postoperative changes in the lumbar spine
[2017-01-29 14:30] VITALS: BP 141/88; TEMP 96.8
[2017-01-29] MEDS ORDERED: PROTONIX PO SCH (17:00)
--- NOTE | 2017-01-30 10:34 | PN ---
DATE OF SERVICE: 01/29/17 SUBJECTIVE: The patient is seen with Nurse Practitioner. The patient is a 61 year old white male hospitalized with acute gastroenteritis. The patient still has mild discomfort in the stomach area. CT scan of the abdomen is ordered and is pending. The patient otherwise is up and about. VITAL SIGNS: Stable LABS: Stable hgb 12.7, hct 37, WBC 8,600 normal differential, creatinine 0.9, BUN 14, potassium 4.1 CONDITION: Stable TIME SPENT: More than 30 minutes. Plan and coordination of the patient's care discussed in the presence of nurse. TRESSA
--- NOTE | 2017-01-30 15:39 | CM.DICTOOL ---
ADMISSION: 01/25/17 10:13 DISCHARGE: JANUARY 29, 2017 DATE OF SERVICE: 01/29/17 FINAL DIAGNOSIS DEHYDRATION ACUTE GASTROENTERITIS COPD- ACUTE EXACERBATION DYSLIPIDEMIA DEPRESSION BIPOLAR (FOLLOWED BY DR. THORNTON) SMOKING RLL HISTOPLASMOSIS CVA RECURRENT, DR. HARTLEY 2013 PNEUMONECTOMY (PARTIAL) RIGHT , BENIGN LUMBAR SPINE SURGERY CHOLECYSTECTOMY LAST VITALS Temp Pulse Resp BP Pulse Ox 96.8 F L 81 20 141/88 H 99 01/29/17 14:00 01/29/17 14:00 01/29/17 14:00 01/29/17 14:00 01/29/17 14:00 ACTIVE MEDICATIONS Aripiprazole (Abilify) 20 mg PO BEDTIME [facility] Last Admin: 01/28/17 19:59 Dose: 20 mg Atorvastatin Calcium (Lipitor) 10 mg PO BEDTIME [facility] Last Admin: 01/28/17 20:00 Dose: 10 mg Citalopram Hydrobromide (Celexa) 40 mg PO DAILY [facility] Last Admin: 01/29/17 09:01 Dose: 40 mg Clopidogrel Bisulfate (Plavix) 75 mg PO DAILY [facility] Last Admin: 01/29/17 09:02 Dose: 75 mg Diazepam (Valium) 5 mg PO TID [facility] Last Admin: 01/29/17 09:03 Dose: Not Given Morphine Sulfate (Ms Contin) 60 mg PO BID [facility] Last Admin: 01/29/17 09:02 Dose: 60 mg Prazosin HCl (Minipress) 2 mg PO BEDTIME [facility] Last Admin: 01/28/17 20:00 Dose: 2 mg ALLERGIES No Known Allergies Allergy (Verified 09/02/13 10:14) NEW PRESCRIPTIONS: KEFLEX 500 MG BID FOR 5 DAYS PROTONIX 40 MG DAILY PRESCRIPTIONS CALLED TO MEG AT PATIENT REQUEST SMOKING: ADVISED TO STOP SMOKING DISEASE SPECIFIC EDUCATION: DEHYDRATION GASTROENTERITIS DIET PRESCRIPTIONS OUTPATIENT TESTING APPOINTMENT LAB REVIEW: 01/29/17 04:45 01/29/17 04:45 01/29/17 04:45: WBC 8.62, RBC 3.84 L, Hgb 12.7 L, Hct 37.8 L, MCV 98.4 H, MCH 33.1 H, MCHC 33.6, RDW Coeff of Luzma 12.8, Plt Count 215, Immature Gran % (Auto) 0.1, Neut % (Auto) 33.1, Lymph % (Auto) 47.2, Jenkins % (Auto) 10.8 H, Eos % (Auto ) 8.1 H, Baso % (Auto) 0.7, Immature Gran # (Auto) 0.0, Neut # 2.9, Lymph # 4.1 H, Jenkins # 0.9, Eos # 0.7, Baso # 0.1, Sodium 143, Potassium 4.1, Chloride 104, Carbon Dioxide 29, Anion Gap 14.1, BUN 14, Creatinine 0.91, Estimated GFR (MDRD ) 85.00, BUN/Creatinine Ratio 15.38, Glucose 89, Calcium 8.9, Total Bilirubin 0.28, AST 8 L, ALT 7 L, Alkaline Phosphatase 69, Total Protein 6.4, Albumin 3.1 L, Globulin 3.3, Albumin/Globulin Ratio 0.94, Triglycerides 69, Cholesterol 106 , LDL Cholesterol, Calc 54, VLDL Cholesterol 14, HDL Cholesterol 38, Cholesterol /HDL Ratio 2.8 L PLAN: DISCHARGE HOME DIET: REGULAR TOLERATED. AVOID SPICY, FATTY FOODS. ACTIVITY: GRADUALLY RESUME TOLERATED. REST WHEN TIRED CONTINUE MEDICATIONS LISTED ON NURSING DISCHARGE INFORMATION SHEET APPOINTMENTS: 1. CT CHEST WITH CONTRAST ON January AT 8 AM AT [facility]. NPO AFTER MIDNIGHT 2. SCHEDULED WITH DR. MCCORMICK ON January AT 9:45 AM MR. YUAN IS ALERT AND ORIENTED X 3. HE IS AMBULATORY AND INDEPENDENT WITH ACTIVITIES OF DAILY LIVING. MEAL INTAKES ARE 100% DESPITE REPORTS OF ALMOST CONSTANT NAUSEA. NO EMESIS SINCE HIS ADMISSION. LAST BOWEL MOVEMENT WAS REPORTED SOFT FORMED. NO ABDOMINAL PAIN OR DIARRHEA. SKIN IS IN GOOD CONDITION AND FREE OF DECUBITUS, RASHES OR OTHER IRRITATION. SERENA MCCORMICK MD ZAY CUELLAR APRN
--- NOTE | 2017-02-05 13:00 | DS ---
DATE OF SERVICE: 01/29/17 FINAL DIAGNOSIS: 1. DEHYDRATION 2. ACUTE GASTROENTERITIS 3. COPD-ACUTE EXACERBATION 4. DYSLIPIDEMIA 5. DEPRESSION 6. BIPOLAR (FOLLOWED BY DR. THORNTON) 7. SMOKING 8. RIGHT LOWER LOBE HISTOPLASMOSIS 9. CVA RECURRENT, DR. HARTLEY 2013 10. PNEUMONECTOMY (PARTIAL) RIGHT, BENIGN 11. LUMBAR SPINE SURGERY 12. CHOLECYSTECTOMY V/S AT DISCHARGE: Temperature 96.8, pulse 81, respiratory rate 20, BP 141/88, pulse ox 99% DISCHARGE INSTRUCTIONS: Followup appointment with Dr. Mayer on 02/02/17 at 9:[address] chest with contrast on 02/01/17 at 8 a.m. at [place]. NPO after midnight. MEDICATIONS AT DISCHARGE: 1. Citalopram Hydrobromide (Celexa) 40 mg p.o. daily 2. Prazosin 2 mg p.o. bedtime 3. Aripiprazole (Abilify) 20 mg p.o. bedtime 4. Clopidogrel (Plavix) 75 mg p.o. daily 5. Atorvastatin (Lipitor) 10 mg p.o. daily 6. Diazepam (Valium) 5 mg p.o. t.i.d. 7. Morphine Sulfate 60 mg p.o. b.i.d. NEW PRESCRIPTIONS: 1. Keflex 500 mg b.i.d. for 5 days 2. Protonix 40 mg daily 3. Prescriptions called to [facility] at patient request DIET INSTRUCTIONS: Regular as tolterated. Avoid spicy, fatty foods. ACTIVITY: Gradually resume as tolerated. Rest when tired. SMOKING: Advised to stop smoking DISEASE SPECIFIC EDUCATION: 1. Dehydration 2. Gastroenteritis 3. Diet 4. Prescriptions 5. Outpatient testing 6. Appointment HOSPITAL COURSE: This is a 61-year-old male who was admitted from the office on 01/25/2017. He presented to the office and had been complaining of vomiting times four days with fever and chills. He also had had diarrhea for 4 days, having it four to five times a day and stated he couldn't keep anything down. He had not been able to eat for the past 3 to 4 days. In our office his temperature was 99.3, oxygen saturation 91%. He had also reported an increase in cough. BP 110/70. Upon examination he had decreased breath sounds, was producing yellow sputum with his cough, was pale with dry skin and dry mucus membranes. He was admitted with dehydration, acute gastroenteritis and COPD with acute exacerbation. We started him on oxygen on 2L, routine telemetry orders, placed him on IV fluids, D5 1/2 NS, Rocephin 1 gm IV. We did sputum cultures, blood cultures and stool cultures. He was given Zofran 4 mg IV for nausea. Stool cultures all came back negative as well as blood cultures and sputum cultures. Chest x-ray showed changes consistent with acute COPD exacerbation. Over the course of several days , his nausea improved. He had no vomiting after the first day of discharge as well as no diarrhea. This morning he was seen and stated that he had been able to eat 75 to 100% of his meals but was still having some nausea off and on. On Sunday, he was also started on Protonix in order to help with the gastritis. Today we did a CT of the abdomen and pelvis without contrast due to persistent nausea which was normal. Hemoglobin on the day of discharge was 12.7, hematocrit 37.8, white count 8.62. Electrolytes had all improved and were normal with normal kidney function and this was a significant improvement from admission. Sodium 143, potassium 4.1, chloride 104, BUN 14 with creatinine 0.91. He was satting 97% on room air. Upon examination this morning, which again is a significant improvement, IV steroids have helped significantly along with Rocephin as he was 91% in our office without oxygen. Blood pressure on discharge was 104/71, respirations 16, pulse 79 and temperature 98.4. He had remained afebrile after the first day of admission. Subsequently, his presented to the emergency room today with illness and chest pain and the patient stated he would like to go ahead and be discharged. He is in stable condition and has significantly improved. We will discharge him on Protonix daily along with Zofran p.r.n. as needed for nausea. He is instructed to return if his symptoms do not continue to improve as the days go by. We will follow up with him in the office within one week. TIME SPENT: More than 60 minutes. TRESSA
== END 2017-01-29 15:25 | disposition home or self-care (01) | DRG 391 ==
LOC: MEDSURG A 10:13
PROVIDERS: ADMIT Internal Medicine; ATTEND Internal Medicine
DX: K52.9 Noninfective gastroenteritis and colitis, unspecified (principal); B39.1 Chronic pulmonary histoplasmosis capsulati; J44.1 Chronic obstructive pulmonary disease with (acute) exacerbation; E86.0 Dehydration; R06.02 Shortness of breath; F17.200 Nicotine dependence, unspecified, uncomplicated; E78.5 Hyperlipidemia, unspecified; F31.9 Bipolar disorder, unspecified; Z79.01 Long term (current) use of anticoagulants; Z79.899 Other long term (current) drug therapy; Z86.73 Personal history of transient ischemic attack (TIA), and cerebral infarction without residual deficits; Z98.890 Other specified postprocedural states; Z90.49 Acquired absence of other specified parts of digestive tract
CPT/HCPCS: 36415; 80053; 80061; 81001; 82550; 82803; 83874; 84436; 84443; 84484; 85025; 87015; 87040; 87045; 87493; 87899; 93005; 93010; 97802

== ENCOUNTER 2017-02-01 07:27 | Outpatient (CLI) ==
--- NOTE | 2017-02-01 08:30 | CT ---
EXAM: CT of the chest with contrast History: Chronic obstructive pulmonary disease Comparison: Chest radiograph 01/25/2017, chest CT 08/16 2007, CT abdomen pelvis 01/29 1017 Technique: Multiplanar CT images through the thorax were obtained following administration of IV co ntrast Findings: Heart size is normal. No pericardial effusion. Coronary artery calcifications. No path ologically enlarged thoracic lymph nodes. Severe emphysema. Scattered areas of subsegmental atelectasis or scarring. No consolidated pneumon ia. No pneumothorax. No suspicious lung masses or lung nodules. Within the visualized upper abdomen, no acute findings. No acute osseous abnormalities. Old chronic compression deformity within the mid thoracic spine. Osteopenia Impression: 1. No acute intrathoracic process. 2. Severe emphysema. 3. Coronary artery disease.
== END 2017-02-01 07:28 | disposition home or self-care (01) ==
LOC: RAD 07:27
PROVIDERS: ATTEND Internal Medicine
DX: R91.8 Other nonspecific abnormal finding of lung field (principal); J44.9 Chronic obstructive pulmonary disease, unspecified

== ENCOUNTER 2017-02-02 09:53 | Inpatient (IN) | payer OTHER ==
[2017-02-02 10:15] VITALS: BMI 23.1
[2017-02-02] MEDS ORDERED: ZOFRAN 4 MG/2 ML IVP PRN (10:21)
[2017-02-02] MEDS ORDERED: LOMOTIL PO PRN (10:21)
[2017-02-02] MEDS ORDERED: ZOFRAN 4 MG/2 ML IVP STA (10:28)
[2017-02-02] MEDS ORDERED: DEXTROSE 5%-1/2NS IV SOLUTION 1,000 ML IV SCH (10:30)
[2017-02-02 11:04] LABS: BASOPHILS % (AUTO) 0.5 % (0.0-3.0); EOSINOPHILS # (AUTO) 0.1 K/ul (0.0-0.7); HEMATOCRIT 40.8 % (42.0-52.0); HEMOGLOBIN 14.3 g/dl (14.0-18.0); IMMATURE GRANULOCYTE % (AUTO) 0.2 % (0.0-5.0); LYMPHOCYTES # (AUTO) 2.8 K/uL (0.60-3.4); LYMPHOCYTES % (AUTO) 33.4 (10.0-50.0); MEAN CORPUSCULAR HEMOGLOBIN 33.6 pg (27.0-31.0); MEAN CORPUSCULAR VOLUME 95.8 fl (80.0-94.0); MONOCYTES # (AUTO) 0.7 K/uL (0.4-2.0); MONOCYTES % (AUTO) 8.4 (0-10); NEUTROPHILS # (AUTO) 4.8 K/ul (2.0-6.9); NEUTROPHILS % (AUTO) 56.5; PLATELET COUNT 245 10^3/uL (140-440); RED BLOOD COUNT 4.26 10^6/ul (4.70-6.10); WHITE BLOOD COUNT 8.41 K/ul (4.2-10.2)
[2017-02-02] MEDS: PROTONIX IV 40 MG in SODIUM CHLORIDE 100 ML IV SCH (11:04)
[2017-02-02] MEDS: DEXTROSE 5%-1/2NS IV SOLUTION 1,000 ML IV SCH ×2 (11:05→19:28)
[2017-02-02 11:17] LABS: ALBUMIN 3.8 g/dL (3.4-5.0); ALBUMIN/GLOBULIN RATIO 1.19; ANION GAP 15.9; BILIRUBIN,TOTAL 0.38 mg/dL (0.00-1.20); BUN/CREATININE RATIO 13.63; CALCIUM 9.6 mg/dL (8.2-10.2); CREATININE 0.88 mg/dL (0.60-1.10); POTASSIUM 3.9 mmol/L (3.5-5.1)
--- NOTE | 2017-02-02 11:51 | DI ---
EXAM: Two views of the chest. History: Short of breath Comparison: Chest radiograph 01/25/2017, chest CT 02/01/2017 Findings: Heart size is normal. Atherosclerotic vascular calcifications. Emphysema again noted. No consolidation. No pneumothorax. Stable chronic scarring at the right costophrenic angle. No ac mandie osseous abnormalities. Impression: No acute cardiopulmonary process. Emphysema and stable chronic scarring at the right c ostophrenic angle. No change compared to the prior study.
[2017-02-02] MEDS ORDERED: ATIVAN PO PRN (14:01)
[2017-02-02] MEDS: ABILIFY PO SCH (20:45)
[2017-02-02] MEDS: MS CONTIN PO SCH (20:46)
[2017-02-02] MEDS: CELEXA PO SCH (20:47)
[2017-02-02] MEDS: MINIPRESS PO SCH (20:47)
[2017-02-02] MEDS: VALIUM PO SCH (20:48)
[2017-02-02] MEDS ORDERED: NON-FORMULARY MEDICATION (Prazosin Hcl [Prazosin Hcl] 2 MG) PO SCH (21:00)
[2017-02-02] MEDS ORDERED: NON-FORMULARY MEDICATION (Citalopram Hydrobromide [Celexa] 40 MG) PO SCH ×22 (21:00)
[2017-02-02] MEDS ORDERED: NON-FORMULARY MEDICATION (Morphine Sulfate [Morphine Sulfate Er] 60 MG) PO SCH (21:00)
[2017-02-02] MEDS ORDERED: ARIPIPRAZOLE 20 MG PO SCH (21:00)
[2017-02-03 04:57] LABS: BASOPHILS # (AUTO) 0.1 K/uL (0-0.2); BASOPHILS % (AUTO) 0.8 % (0.0-3.0); EOSINOPHILS # (AUTO) 0.3 K/ul (0.0-0.7); EOSINOPHILS % (AUTO) 4.4 % (0.0-7.0); HEMATOCRIT 36.6 % (42.0-52.0); HEMOGLOBIN 12.6 g/dl (14.0-18.0); IMMATURE GRANULOCYTE % (AUTO) 0.1 % (0.0-5.0); LYMPHOCYTES # (AUTO) 4.5 K/uL (0.60-3.4); LYMPHOCYTES % (AUTO) 60.2 (10.0-50.0); MEAN CORPUSCULAR HEMOGLOBIN 33.6 pg (27.0-31.0); MEAN CORPUSCULAR HGB CONC 34.4 (31.8-35.4); MEAN CORPUSCULAR VOLUME 97.6 fl (80.0-94.0); MONOCYTES # (AUTO) 0.7 K/uL (0.4-2.0); MONOCYTES % (AUTO) 8.7 (0-10); NEUTROPHILS # (AUTO) 1.9 K/ul (2.0-6.9); NEUTROPHILS % (AUTO) 25.8; PLATELET COUNT 204 10^3/uL (140-440); RED BLOOD COUNT 3.75 10^6/ul (4.70-6.10); WHITE BLOOD COUNT 7.51 K/ul (4.2-10.2)
[2017-02-03 05:22] LABS: ALBUMIN 3.2 g/dL (3.4-5.0); ALBUMIN/GLOBULIN RATIO 1.28; ANION GAP 13.9; BILIRUBIN,TOTAL 0.46 mg/dL (0.00-1.20); BUN/CREATININE RATIO 9.87; CALCIUM 8.3 mg/dL (8.2-10.2); CREATININE 0.81 mg/dL (0.60-1.10); POTASSIUM 3.9 mmol/L (3.5-5.1); TOTAL PROTEIN 5.7 g/dL (6.4-8.2)
[2017-02-03] MEDS: DEXTROSE 5%-1/2NS IV SOLUTION 1,000 ML IV SCH ×2 (08:16→22:48)
[2017-02-03] MEDS: LIPITOR PO SCH (08:17)
[2017-02-03] MEDS: VALIUM PO SCH ×3 (08:18→20:25)
[2017-02-03] MEDS: PLAVIX PO SCH (08:18)
[2017-02-03] MEDS: MS CONTIN PO SCH ×2 (08:18→20:25)
[2017-02-03] MEDS: PROTONIX IV 40 MG in SODIUM CHLORIDE 100 ML IV SCH (08:37)
[2017-02-03] MEDS: ABILIFY PO SCH (20:24)
[2017-02-03] MEDS: CELEXA PO SCH (20:25)
[2017-02-03] MEDS: MINIPRESS PO SCH (20:25)
[2017-02-04 04:31] LABS: BASOPHILS # (AUTO) 0.1 K/uL (0-0.2); BASOPHILS % (AUTO) 0.7 % (0.0-3.0); EOSINOPHILS # (AUTO) 0.4 K/ul (0.0-0.7); EOSINOPHILS % (AUTO) 5.3 % (0.0-7.0); HEMATOCRIT 35.6 % (42.0-52.0); HEMOGLOBIN 12.2 g/dl (14.0-18.0); IMMATURE GRANULOCYTE % (AUTO) 0.1 % (0.0-5.0); LYMPHOCYTES # (AUTO) 3.4 K/uL (0.60-3.4); LYMPHOCYTES % (AUTO) 44.7 (10.0-50.0); MEAN CORPUSCULAR HGB CONC 34.3 (31.8-35.4); MEAN CORPUSCULAR VOLUME 99.2 fl (80.0-94.0); MONOCYTES # (AUTO) 0.6 K/uL (0.4-2.0); MONOCYTES % (AUTO) 8.5 (0-10); NEUTROPHILS # (AUTO) 3.1 K/ul (2.0-6.9); NEUTROPHILS % (AUTO) 40.7; PLATELET COUNT 190 10^3/uL (140-440); RED BLOOD COUNT 3.59 10^6/ul (4.70-6.10); WHITE BLOOD COUNT 7.51 K/ul (4.2-10.2)
[2017-02-04 04:53] LABS: ALBUMIN 2.9 g/dL (3.4-5.0); ALBUMIN/GLOBULIN RATIO 1.26; ANION GAP 12.4; BILIRUBIN,TOTAL 0.25 mg/dL (0.00-1.20); BUN/CREATININE RATIO 8.69; CALCIUM 8.3 mg/dL (8.2-10.2); CREATININE 0.92 mg/dL (0.60-1.10); POTASSIUM 4.4 mmol/L (3.5-5.1); TOTAL PROTEIN 5.2 g/dL (6.4-8.2)
[2017-02-04] MEDS: DEXTROSE 5%-1/2NS IV SOLUTION 1,000 ML IV SCH ×2 (07:15→11:30)
[2017-02-04] MEDS: PLAVIX PO SCH (09:43)
[2017-02-04] MEDS: PROTONIX IV 40 MG in SODIUM CHLORIDE 100 ML IV SCH (09:43)
[2017-02-04] MEDS: VALIUM PO SCH ×3 (09:44→20:16)
[2017-02-04] MEDS: LIPITOR PO SCH (09:44)
[2017-02-04] MEDS: MS CONTIN PO SCH ×2 (09:44→20:16)
[2017-02-04] MEDS: MINIPRESS PO SCH (20:15)
[2017-02-04] MEDS: ABILIFY PO SCH (20:15)
[2017-02-04] MEDS: CELEXA PO SCH (20:16)
[2017-02-05 05:20] LABS: BASOPHILS % (AUTO) 0.6 % (0.0-3.0); EOSINOPHILS # (AUTO) 0.5 K/ul (0.0-0.7); EOSINOPHILS % (AUTO) 6.7 % (0.0-7.0); HEMATOCRIT 37.5 % (42.0-52.0); HEMOGLOBIN 12.9 g/dl (14.0-18.0); IMMATURE GRANULOCYTE % (AUTO) 0.1 % (0.0-5.0); LYMPHOCYTES # (AUTO) 3.2 K/uL (0.60-3.4); MEAN CORPUSCULAR HEMOGLOBIN 33.4 pg (27.0-31.0); MEAN CORPUSCULAR HGB CONC 34.4 (31.8-35.4); MEAN CORPUSCULAR VOLUME 97.2 fl (80.0-94.0); MONOCYTES # (AUTO) 0.6 K/uL (0.4-2.0); MONOCYTES % (AUTO) 9.5 (0-10); NEUTROPHILS # (AUTO) 2.4 K/ul (2.0-6.9); NEUTROPHILS % (AUTO) 36.1; PLATELET COUNT 202 10^3/uL (140-440); RED BLOOD COUNT 3.86 10^6/ul (4.70-6.10); WHITE BLOOD COUNT 6.75 K/ul (4.2-10.2)
[2017-02-05 05:44] LABS: ALBUMIN 3.2 g/dL (3.4-5.0); ALBUMIN/GLOBULIN RATIO 1.19; ANION GAP 10.8; BILIRUBIN,TOTAL 0.4 mg/dL (0.00-1.20); BUN/CREATININE RATIO 12.08; CALCIUM 8.5 mg/dL (8.2-10.2); CREATININE 0.91 mg/dL (0.60-1.10); POTASSIUM 3.8 mmol/L (3.5-5.1); TOTAL PROTEIN 5.9 g/dL (6.4-8.2)
[2017-02-05] MEDS ORDERED: PROTONIX PO SCH (06:30)
[2017-02-05] MEDS: MS CONTIN PO SCH (09:49)
[2017-02-05] MEDS: VALIUM PO SCH (09:49)
[2017-02-05] MEDS: PLAVIX PO SCH (09:49)
[2017-02-05] MEDS: LIPITOR PO SCH (09:49)
--- NOTE | 2017-02-05 10:17 | PN ---
DATE OF SERVICE: 02/03/17 SUBJECTIVE: The patient is a 61 year old white male hospitalized with acute gastroenteritis. The patient's condition has improved remarkably and he is feeling better. He is afebrile. His abdominal pain and has practically subsided. The patient has mild discomfort in the epigastric area likely from smoking and taking a lot of ibuprofen which he is advised not to. Nausea and vomiting has subsided and he is hungry and wants regular diet. REVIEW OF SYSTEMS: CONSTITUTIONAL: No night sweats. No fatigue, malaise, lethargy. No fever or chills. HEENT: Eyes: No visual changes. No eye pain. No eye discharge. ENT: No runny nose. No epistaxis. No sinus pain. No sore throat. No odynophagia. No congestion. RESPIRATORY: No cough, no congestion. No hemoptysis. CARDIOVASCULAR: No angina symptoms. No CHF symptoms. No atypical chest pain for CAD. No palpitations. No shortness of breath. GASTROINTESTINAL: No abdominal pain. No nausea or vomiting. No diarrhea or constipation. No hematemesis. No hematochezia. GENITOURINARY: No urgency. No frequency. No dysuria. No hematuria. No obstructive symptoms. No discharge. No pain. No significant abnormal bleeding. MUSCULOSKELETAL: No musculoskeletal pain; no joint swelling. NEUROLOGICAL: No headache. No neck pain. No syncope. No seizures. No dizziness. PSYCHIATRIC: Not anxious. No depression. No suicidal thoughts. No homicidal thoughts. SKIN: No rash. No lesions. No wounds. ENDOCRINE: No unexplained weight loss. No weight gain. HEMATOLOGIC/LYMPHATIC: No anemia. No purpura. No petechiae. No prolonged or excessive bleeding. No palpable lymph nodes. PHYSICAL EXAMINATION: GENERAL: The patient is oriented to time, place and person. ITAL SIGNS: Temperature 97.6, pulse 78, respiratory 16, blood pressure 120/70 and pulse 98% HEENT: Head normocephalic, atraumatic. Eyes: Extraocular muscles are intact. Pupils are equal, round and reactive to light and accommodation. Ears: No lesions. Nose appeared normal. Throat: No exudate or erythema. NECK: Supple. No JVD, no carotid bruit. No lymphadenopathy or thyromegaly. LUNGS:Decreased breath sounds bilaterally but clear to auscultation. Percussion note normal. Chest symmetrical. HEART: S1, S2, no S3. No murmurs. No cyanosis or clubbing. No ascites. Pulses: Dorsalis pedis and posterior tibial pulses +1 to +2 both sides. ABDOMEN: Soft. Nontender. Bowel sounds active. No CVA tenderness. No mass felt. EXTREMITIES: No edema. Full range of motion of all extremities, equal. NEUROLOGIC: No focal deficit. Cranial nerves II through XII are grossly intact. No headache, no double vision or headache. SKIN: Not dry. Intact. Turgor - normal. LYMPHATIC: No palpable lymph nodes/no lymphedema. MUSCULOSKELETAL: Normal joints with no swelling. Muscle tone is normal. LABS: Hgb 12.6, hct 36, WBC 7,500 normal differential, creatinine 0.8, BUN 8, potassium 3.9 ASSESSMENT: 1. Acute gastroenteritis resolved 2. Dehydration resolved 3. COPD, smoker PLAN: 1. Continue IV fluids 2. Put patient on regular diet 3. Patient advised to be up and about CONDITION: Stable TIME SPENT: More than 30 minutes. Plan and coordination of the patient's care discussed in the presence of nurse. TRESSA
[2017-02-05 10:36] VITALS: BP 127/84; TEMP 97.8
--- NOTE | 2017-02-05 10:36 | PCM.PROG ---
Attending Provider: ATTENDING PROVIDER: Dr. SERENA MCCORMICK DATE OF SERVICE: 02/05/17 SUBJECTIVE: This 61 year old WHITE/ M was hospitalized 02/02/17. The patient is seen with Anika, Nurse Practitioner. The patient is alert, sitting in bed ready to go home. He is eating 100% of meals without nausea. C diff test pending. REVIEW OF SYSTEMS: CONSTITUTIONAL: No night sweats. No fatigue, malaise, lethargy. No fever or chills. HEENT: Eyes: No visual changes. No eye pain. No eye discharge. ENT: No runny nose. No epistaxis. No sinus pain. No odynophagia. No congestion. RESPIRATORY: No cough, no congestion. No hemoptysis. CARDIOVASCULAR: No angina symptoms. No CHF symptoms. No atypical chest pain for CAD. No palpitations. No shortness of breath. GASTROINTESTINAL: Nausea. Appeite is normal. No abdominal pain. No vomiting. No diarrhea or constipation. No hematemesis. No hematochezia. GENITOURINARY: No urgency. No frequency. No dysuria. No hematuria. No obstructive symptoms. No discharge. No pain. No significant abnormal bleeding. MUSCULOSKELETAL: No musculoskeletal pain; no joint swelling. NEUROLOGICAL: Awake, alert, oriented to time, place and person. No headache. No neck pain. No syncope. No seizures. No dizziness. PSYCHIATRIC: Not anxious. No depression. No suicidal thoughts. No homicidal thoughts. SKIN: No rash. No lesions. No wounds. ENDOCRINE: No unexplained weight loss. No weight gain. HEMATOLOGIC/LYMPHATIC: No anemia. No purpura. No petechiae. No prolonged or excessive bleeding. No palpable lymph nodes. PHYSICAL EXAMINATION: GENERAL: The patient is awake, alert and oriented, lying/sitting in bed in no distress. VITAL SIGNS: Temperature 97.2 F, Pulse 88, Respiratory Rate 13, BP 112/79, Pulse Ox 94% HEENT: Head normocephalic, atraumatic. Eyes: Extraocular muscles are intact. Pupils are equal, round and reactive to light and accommodation. Ears: No lesions. Nose appeared normal. Throat: No exudate or erythema. NECK: Supple. No JVD, no carotid bruit. No lymphadenopathy or thyromegaly. LUNGS: Diminished breath sounds bilaterally. Clear to auscultation. Percussion note normal. Chest symmetrical. HEART: S1, S2, no S3. No murmurs. No cyanosis or clubbing. No ascites. Pulses: Dorsalis pedis and posterior tibial pulses +1 to +2 both sides. ABDOMEN: Soft. Non-tender. Bowel sounds active. No CVA tenderness. No mass felt. EXTREMITIES: No edema. Full range of motion of all extremities, equal. NEUROLOGIC: No focal deficit. Cranial nerves II through XII are grossly intact. No headache, no double vision or headache. SKIN: Not dry. Intact. Turgor-normal. LYMPHATIC: No palpable lymph nodes/no lymphedema. MUSCULOSKELETAL: Normal joints with no swelling. Muscle tone is normal. LAB REVIEW: 02/05/17 05:10 02/05/17 05:10 02/05/17 05:10: WBC 6.75, RBC 3.86 L, Hgb 12.9 L, Hct 37.5 L, MCV 97.2 H, MCH 33.4 H, MCHC 34.4, RDW Coeff of Luzma 12.5, Plt Count 202, Immature Gran % (Auto) 0.1, Neut % (Auto) 36.1, Lymph % (Auto) 47.0, Arthur % (Auto) 9.5, Eos % (Auto) 6.7, Baso % (Auto) 0.6, Immature Gran # (Auto) 0.0, Neut # 2.4, Lymph # 3.2, Arthur # 0.6, Eos # 0.5, Baso # 0.0, Sodium 142, Potassium 3.8, Chloride 107, Carbon Dioxide 28, Anion Gap 10.8, BUN 11, Creatinine 0.91, Estimated GFR (MDRD ) 85.00, BUN/Creatinine Ratio 12.08, Glucose 92, Calcium 8.5, Total Bilirubin 0.40, AST 10 L, ALT 8 L, Alkaline Phosphatase 65, Total Protein 5.9 L, Albumin 3.2 L, Globulin 2.7, Albumin/Globulin Ratio 1.19 ASSESSMENT: 1. Acute gastroenteritis 2. Dehydration resolved 3. COPD PLAN: 1. Zofran 4 mg one q.8 p.r.n. 2. Lomotil one b.i.d. p.r.n. 3. D/C home today 4. Followup in the office in one week Plan and coordination of the patient's care discussed in the presence of Certified Medical Coder and nurse. CONDITION: Stable SCRIBED BY: CARMELO MOHAMUD Associate Medical Director scribed while in presence of service performed by Dr. SERENA MCCORMICK/ANIKA CUELLAR APRN on 02/05/17 ([id number])
--- NOTE | 2017-02-05 11:25 | PN ---
DATE OF SERVICE: 02/04/17 SUBJECTIVE: The patient is a 61 year old white male hospitalized with acute gastroenteritis and dehydration. The patient's condition has steadily improved and he is feeling a lot better, eating normally. IV will be discontinued. REVIEW OF SYSTEMS: CONSTITUTIONAL: No night sweats. No fatigue, malaise, lethargy. No fever or chills. HEENT: Eyes: No visual changes. No eye pain. No eye discharge. ENT: No runny nose. No epistaxis. No sinus pain. No sore throat. No odynophagia. No congestion. RESPIRATORY: No cough, no congestion. No hemoptysis. CARDIOVASCULAR: No angina symptoms. No CHF symptoms. No atypical chest pain for CAD. No palpitations. No shortness of breath. GASTROINTESTINAL: No abdominal pain. No nausea or vomiting. No diarrhea or constipation. No hematemesis. No hematochezia. Appetite has improved. GENITOURINARY: No urgency. No frequency. No dysuria. No hematuria. No obstructive symptoms. No discharge. No pain. No significant abnormal bleeding. MUSCULOSKELETAL: No musculoskeletal pain; no joint swelling. NEUROLOGICAL: No headache. No neck pain. No syncope. No seizures. No dizziness. PSYCHIATRIC: Not anxious. No depression. No suicidal thoughts. No homicidal thoughts. SKIN: No rash. No lesions. No wounds. ENDOCRINE: No unexplained weight loss. No weight gain. HEMATOLOGIC/LYMPHATIC: No anemia. No purpura. No petechiae. No prolonged or excessive bleeding. No palpable lymph nodes. PHYSICAL EXAMINATION: GENERAL: The patient is oriented to time, place and person. VITAL SIGNS: Temperature 97.7, pulse 60, respiratory 20, blood pressure 114/74 and pulse ox 97%. HEENT: Head normocephalic, atraumatic. Eyes: Extraocular muscles are intact. Pupils are equal, round and reactive to light and accommodation. Ears: No lesions. Nose appeared normal. Throat: No exudate or erythema. NECK: Supple. No JVD, no carotid bruit. No lymphadenopathy or thyromegaly. LUNGS: Decreased breath sounds but clear to auscultation. Percussion note normal. Chest symmetrical. HEART: S1, S2, no S3. No murmurs. No cyanosis or clubbing. No ascites. Pulses: Dorsalis pedis and posterior tibial pulses +1 to +2 both sides. ABDOMEN: Soft. Nontender. Bowel sounds active. No CVA tenderness. No mass felt. EXTREMITIES: No edema. Full range of motion of all extremities, equal. NEUROLOGIC: No focal deficit. Cranial nerves II through XII are grossly intact. No headache, no double vision or headache. SKIN: Not dry. Intact. Turgor - normal. LYMPHATIC: No palpable lymph nodes/no lymphedema. MUSCULOSKELETAL: Normal joints with no swelling. Muscle tone is normal. LABS: Hgb 12.2, hct 35, WBC 7,500 normal differential, creatinine 0.9, BUN 8, potassium 4.4. ASSESSMENT: 1. Acute gastroenteritis, resolved 2. COPD 3. Mild Anemia PLAN: 1. The patient is strongly advised to quit smoking 2. Will continue to give patient his pain medications followed by Pain Management 3. Side effects of the medication discussed, addiction discussed and advised not mix medications with alcohol or over the count medication. The patient says that without the pain medications he won't be able to do his ADL's or do able function. 4. The patient's depression is under control CONDITION: Stable. TIME SPENT: More than 30 minutes. Plan and coordination of the patient's care discussed in the presence of nurse. TRESSA
--- NOTE | 2017-02-05 12:07 | CM.DICTOOL ---
ADMISSION: 02/02/17 09:53 DISCHARGE: 02/05/17 DATE OF SERVICE: 02/05/17 FINAL DIAGNOSIS ACUTE GASTROENTERITIS DEHYDRATION COPD TOBACCO ABUSE (REPORTS STOPPING) DEPRESSION/ANXIETY BIPOLAR DISORDER (DR. THORNTON) DYSLIPIDEMIA CVA, DR. HARTLEY 2013 HISTORY OF HISTOPLASMOSIS - RIGHT LOWER LUNG RIGHT LOWER LOBE PNEUMONECTOMY (BENIGN) LUMBAR SURGERIES X3 CHRONIC BACK PAIN (PAIN MANAGEMENT) LAST VITALS Temp Pulse Resp BP Pulse Ox 97.2 F L 88 13 112/79 94 L 02/05/17 05:09 02/05/17 05:09 02/05/17 05:09 02/05/17 05:09 02/05/17 05:09 ACTIVE MEDICATIONS Aripiprazole (Abilify) 20 mg PO BEDTIME [facility] Last Admin: 02/04/17 20:15 Dose: 20 mg Atorvastatin Calcium (Lipitor) 10 mg PO DAILY [facility] Last Admin: 02/05/17 09:49 Dose: 10 mg Citalopram Hydrobromide (Celexa) 40 mg PO BEDTIME [facility] Last Admin: 02/04/17 20:16 Dose: 40 mg Clopidogrel Bisulfate (Plavix) 75 mg PO DAILY [facility] Last Admin: 02/05/17 09:49 Dose: 75 mg Diazepam (Valium) 5 mg PO TID [facility] Last Admin: 02/05/17 09:49 Dose: 5 mg Diphenoxylate HCl/Atropine (Lomotil) 1 tab PO BID PRN (NEW PRESCRIPTION) PRN Reason: Diarrhea Morphine Sulfate (Ms Contin) 60 mg PO BID [facility] Last Admin: 02/05/17 09:49 Dose: 60 mg Ondansetron HCl (Zofran) 4 mg PO Q6H PRN (NEW PRESCRIPTION) PRN Reason: nausea/vomiting Pantoprazole Sodium (Protonix) 40 mg PO QDAC [facility] Last Admin: 02/05/17 05:39 Dose: 40 mg Prazosin HCl (Minipress) 2 mg PO BEDTIME [facility] Last Admin: 02/04/17 20:15 Dose: 2 mg ALLERGIES No Known Allergies Allergy (Verified 09/02/13 10:14) NEW PRESCRIPTIONS: ZOFRAN 4 MG, TAKE ONE TABLET BY MOUTH EVERY 6 HOURS IF NEEDED (PRN) FOR NAUSEA AND VOMITING LOMOTIL, TAKE ONE TABLET BY MOUTH TWICE DAILY IF NEEDED )PRN) FOR DIARRHEA SMOKING: THE PATIENT CURRENTLY IS A HEAVY SMOKER. HE HAS A 30 PACK YEAR SMOKING HISTORY. HE HAS RECEIVED INFORMATION REGARDING SMOKING CESSATION AND THE ADDED RISK SMOKING CAUSES TO CARDIOPULMONARY HEALTH. HE HAS ALSO BEEN REMINDED OF THE BENEFITS OF COMPLETE CESSATION. HE HAS NOT VERBALIZED HIS INTENT TO STOP SMOKING OR EVEN DIMINISH THE FREQUENCY OF SMOKING. HE WILL REQUIRE MORE ENCOURAGEMENT AND REINFORCEMENT OF THE TEACHING. DISEASE SPECIFIC EDUCATION: GASTROENTERITIS DEHYDRATION COPD HOME MEDICATIONS NEW PRESCRIPTIONS ACTIVITY DIET FOLLOW-UP LAB REVIEW: 02/05/17 05:10 02/05/17 05:10 02/05/17 05:10: WBC 6.75, RBC 3.86 L, Hgb 12.9 L, Hct 37.5 L, MCV 97.2 H, MCH 33.4 H, MCHC 34.4, RDW Coeff of Luzma 12.5, Plt Count 202, Immature Gran % (Auto) 0.1, Neut % (Auto) 36.1, Lymph % (Auto) 47.0, [place] % (Auto) 9.5, Eos % (Auto) 6.7, Baso % (Auto) 0.6, Immature Gran # (Auto) 0.0, Neut # 2.4, Lymph # 3.2, [place] # 0.6, Eos # 0.5, Baso # 0.0, Sodium 142, Potassium 3.8, Chloride 107, Carbon Dioxide 28, Anion Gap 10.8, BUN 11, Creatinine 0.91, Estimated GFR (MDRD ) 85.00, BUN/Creatinine Ratio 12.08, Glucose 92, Calcium 8.5, Total Bilirubin 0.40, AST 10 L, ALT 8 L, Alkaline Phosphatase 65, Total Protein 5.9 L, Albumin 3.2 L, Globulin 2.7, Albumin/Globulin Ratio 1.19 PLAN: DISCHARGE HOME TODAY RETURN TO SEE DR. MCCORMICK IN ONE WEEK. PLEASE PHONE HIS OFFICE TO SCHEDULE YOUR APPOINTMENT. [phone]) RESUME YOUR HOME MEDICATIONS PER LIST PROVIDED BY THE NURSING STAFF NEW PRESCRIPTIONS: ZOFRAN 4 MG, TAKE ONE TABLET BY MOUTH EVERY 6 HOURS IF NEEDED (PRN) FOR NAUSEA AND VOMITING LOMOTIL, TAKE ONE TABLET BY MOUTH TWICE DAILY IF NEEDED )PRN) FOR DIARRHEA DIET: REGULAR, HEALTHY HEART DIET TOLERATED ACTIVITY: GET PLENTY OF REST AT HOME. GRADUALLY INCREASE YOUR ACTIVITY LEVEL ACCORDING TO YOUR TOLERATION SUMMARY: THE PATIENT IS ALERT AND ORIENTED X3. HE CURRENTLY RESIDES AT HOME. DUE TO ILLNESS, HIS IS STAYING WITH A DAUGHTER UNTIL THE END OF JANUARY. HE IS INDEPENDENT WITH ADL'S AND CONTINUES TO BE ABLE TO PROVIDE HIS OWN TRANSPORTATION. HE REQUIRES NO USE OF ANY DURABLE MEDICAL EQUIPMENT. HE HAS NO HOME HEALTH SERVICES OR HOMEMAKING ASSISTANCE. HE DESIRES TO RETURN TO HIS HOME AT DISCHARGE. HIS SKIN TURGOR IS GOOD. THERE ARE NO DECUBITUS ULCERS AT DISCHARGE. THE PATIENT'S VITAL SIGNS ARE STABLE. HE IS PAIN FREE AND AFEBRILE. HE IS AWARE AND AGREEABLE FOR DISCHARGE TODAY. ZAY CUELLAR APRN SERENA MCCORMICK M.D.
--- NOTE | 2017-02-06 10:33 | PN ---
DATE OF SERVICE: 02/05/17 SUBJECTIVE: The patient was seen with Nurse Practitioner. The patient is a 61 year old white male hospitalized with acute gastroenteritis. REVIEW OF SYSTEMS: CONSTITUTIONAL: No night sweats. No fatigue, malaise, lethargy. No fever or chills. HEENT: Eyes: No visual changes. No eye pain. No eye discharge. ENT: No runny nose. No epistaxis. No sinus pain. No sore throat. No odynophagia. No congestion. RESPIRATORY: No cough, no congestion. No hemoptysis. CARDIOVASCULAR: No angina symptoms. No CHF symptoms. No atypical chest pain for CAD. No palpitations. No shortness of breath. GASTROINTESTINAL: No abdominal pain. No nausea or vomiting. No diarrhea or constipation. No hematemesis. No hematochezia. GENITOURINARY: No urgency. No frequency. No dysuria. No hematuria. No obstructive symptoms. No discharge. No pain. No significant abnormal bleeding. MUSCULOSKELETAL: No musculoskeletal pain; no joint swelling. NEUROLOGICAL: No headache. No neck pain. No syncope. No seizures. No dizziness. PSYCHIATRIC: Not anxious. No depression. No suicidal thoughts. No homicidal thoughts. SKIN: No rash. No lesions. No wounds. ENDOCRINE: No unexplained weight loss. No weight gain. HEMATOLOGIC/LYMPHATIC: No anemia. No purpura. No petechiae. No prolonged or excessive bleeding. No palpable lymph nodes. PHYSICAL EXAMINATION: GENERAL: The patient is oriented to time, place and person. VITAL SIGNS: Stable with blood pressure 112/79 and pulse of 88 with saturation 94% on room air. HEENT: Head normocephalic, atraumatic. Eyes: Extraocular muscles are intact. Pupils are equal, round and reactive to light and accommodation. Ears: No lesions. Nose appeared normal. Throat: No exudate or erythema. NECK: Supple. No JVD, no carotid bruit. No lymphadenopathy or thyromegaly. LUNGS: Clear to auscultation. Percussion note normal. Chest symmetrical. HEART: S1, S2, no S3. No murmurs. No cyanosis or clubbing. No ascites. Pulses: Dorsalis pedis and posterior tibial pulses +1 to +2 both sides. ABDOMEN: Soft. Nontender. Bowel sounds active. No CVA tenderness. No mass felt. EXTREMITIES: No edema. Full range of motion of all extremities, equal. NEUROLOGIC: No focal deficit. Cranial nerves II through XII are grossly intact. No headache, no double vision or headache. SKIN: Not dry. Intact. Turgor - normal. LYMPHATIC: No palpable lymph nodes/no lymphedema. MUSCULOSKELETAL: Normal joints with no swelling. Muscle tone is normal. LABS: Stable PLAN: 1. Advised to cut down on dairy product 2. Advised to quit smoking 3. The patient will be sent with Amanda as an outpatient. CONDITION: Stable TIME SPENT: More than 30 minutes. Plan and coordination of the patient's care discussed in the presence of nurse. TRESSA
--- NOTE | 2017-02-06 10:34 | PN ---
02/02/17: Level 5 02/03/17: Intermediate 02/04/17: Intermediate 02/05/17: D as in discharge. MTDD
--- NOTE | 2017-02-07 11:09 | HP ---
DATE OF SERVICE: 02/02/17 HISTORY OF PRESENT ILLNESS: This is a 61-year-old male who presented for hospital followup. The patient complains of vomiting, diarrhea times one week, chills, not able to eat , weakness, and tiredness. REVIEW OF SYSTEMS: CONSTITUTIONAL: Fatigue and chills. No fever. HEENT: No sinus drainage, no sore throat. RESPIRATORY: Mild cough. No hemoptysis. CARDIOVASCULAR: Shortness of breath mild with exertion. No atypical chest pain for coronary artery disease. No angina, CHF symptoms, or palpitations. GASTROINTESTINAL: Nausea, vomiting and diarrhea. No melena. No abdominal pain. No GERD. GENITOURINARY: No hematuria, no prostatism, no polyuria. 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 MUSCULOSKELETAL: Osteoarthritis pain. No joint swelling. ENDOCRINE: Weight loss of 2 lbs in 8 days. SKIN: Dry, no rash. PSYCHIATRIC: Not anxious, no depression, no suicidal thoughts, no homicidal thoughts. PAST MEDICAL HISTORY: 1. COPD 2. BIPOLAR DISORDER 3. INSOMNIA PAST SURGICAL HISTORY: 1. Three back surgeries 2. Right lower lung SOCIAL HISTORY: Smoker - one pack per day times 30 years. No alcohol use. (Chery) with two boys that are healthy. Disabled. FAMILY HISTORY: Father is of histoplasmosis. Mother with CHF. Brother (10) three , seven alive, CAD, COPD, hypertension. Sisters (6) all six are alive with unknown health issues. MEDICATIONS: (HOME) 1. Citalopram (Celexa) 40 mg p.o. daily 2. Prazosin 2 mg p.o. bedtime 3. Aripiprazole (Abilify) 20 mg p.o. bedtime 4. Clopidogrel (Plavix) 75 mg p.o. daily 5. Atorvastatin (Lipitor) 10 mg p.o. daily 6. Diazepam (Valium) 5 mg p.o. t.i.d. 7. Morphine Sulfate 60 mg p.o. b.i.d. 8. Pantoprazole (Protonix) 40 mg p.o. daily PHYSICAL EXAMINATION: V/S: Pulse 90, BP 110/64, temperature 99.1, 02 sat 99%. Weight 162.2, Height 5' 10", BMI 23.2. GENERAL APPEARANCE: Oriented times three. Pallor positive. Skin turgor poor. HEENT: Normal. NECK: No JVP, no bruits. RESPIRATORY: Lungs are clear with decreased breath sounds. CARDIOVASCULAR: S1, S2, no S3, no murmurs. No cyanosis, clubbing. No ascites. GI/ABDOMEN: No tenderness. Bowel sounds are active. EXTREMITIES: No edema, pulses +1, equal. [employer]: Deep tendon reflexes, sensory, motor and gait all normal. RECTAL/PROSTATE: Prostate 11/06 (0.5). Colonoscopy and endoscopy: Dr. Mack ASSESSMENT: 1. ACUTE GASTROENTERITIS WITH DEHYDRATION 2. COPD 3. GENERALIZED WEAKNESS 4. DYSLIPIDEMIA 5. DEPRESSION - BIPOLAR (DR. THORNTON) 6. SMOKING/COPD 7. HISTORY OF BACK SURGERY 8. S/P CHOLECYSTECTOMY 9. RIGHT LOWER LOBE HISTOPLASMOSIS 10. CVA 11. PNEUMONECTOMY, RIGHT PLAN: 1. Admit regular with telemetry 2. Diet - full liquid; avoid milk products 3. 1000 cc D5 1/2 NS q.12hr 4. CBC, CMP today and daily a.m. 5. Stool for C & S 6. Stool for C. diff 7. Chest x-ray today 8. EKG today 9. Zofran 4 mg IV q.6hr for nausea/vomiting and one dose now 10. Lomotil 2.5 mg b.i.d. for diarrhea 11. Protonix 40 mg IV today and daily a.m. 12. Continue all pain medications per Pain Management. TIME SPENT: More than 70 minutes. MTDD
--- NOTE | 2017-02-15 15:45 | DS ---
DATE OF SERVICE: 02/05/17 FINAL DIAGNOSIS: 1. Acute gastroenteritis 2. Dehydration 3. COPD 4. Tobacco abuse (reports stopping) 5. Depression/anxiety 6. Dyslipidemia 7. CVA, Dr. Mittal 2013 8. History of Histoplasmosis-right lower lung 9. Right lower lobe pneumonectomy (benign) 10.Lumbar surgeriesx3 11.Chronic back pain (Pain Management) LAST VITALS: Temperature 97.2, pulse 88, respiratory rate 13, blood pressure 112/79 and pulse ox 94%. DISCHARGE INSTRUCTIONS: Discharge the patient home today. Return to see Dr. Mayer in one week. Resume home medication as per list provided by the nursing staff. MEDICATIONS AT DISCHARGE: Abilify 20mg Po bedtime Lipitor 10mg PO daily Celexa 40mg Po bedtime Plavix 75mg PO daily Valium 5mg PO three times a day Lomotil one tablet PO twice a day PRN Ms Contin 60mg PO twice a day Zofran 4mg PO Q 6 hours PRN Protonix 40mg PO QDAC Minipress 2mg PO bedtime ALLERGIES: No known allergies NEW PRESCRIPTIONS: Zofran 4mg take one tablet by mouth every 6 hours if needed for nausea and vomiting Lomotil take one tablet by mouth twice daily if needed PRN for diarrhea. DIET INSTRUCTIONS: Regular, health heart diet as tolerated ACTIVITY: Get plenty of rest at home. Gradually increase activity level according to toleration. SMOKING: The patient currently is a heavy smoker. He has a 30 pack year smoking history. He has received information regarding smoking cessation and the added risk smoking causes to cardiopulmonary health. He has also been reminded of the benefits of complete cessation. He has not verbalized his intent to stop smoking or even diminish the frequency of smoking. he will requite more encouragement and reinforcement of the teaching. DISEASE SPECIFIC EDUCATION: Gastroenteritis Dehydration COPD Home medications New prescriptions Activity Diet Follow-up HOSPITAL COURSE: The patient arrived through the emergency room. He had been hospitalized approximately 10 days ago with acute gastroenteritis and left the hospital due to his becoming acutely ill. He returned via the emergency room stating that he was nauseated and unable to keep anything down. He was admitted for dehydration, acute gastroenteritis and COPD. He was admitted through the emergency room and placed on routine telemetry orders. He had four episodes of diarrhea and a C-Diff testing is currently pending. He was admitted and continued on all his home medications including Protonix, given IV 4mg of Zofran iv push Q 6 hours as needed as well as Lomatol one tablet twice a day PRN for diarrhea. He was also started on IV fluids.Over the course of a couple of day since yesterday he has been eating 100% of his meals. He starts that he has not vomited and his nausea is better. 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 Smoking cessation was discussed and advised with this clinic. This morning his vital signs were normal ; temperature 97.2, heart rate 88, respirations 13, blood pressure was steady at 112/79 and he was experiencing some hypotension upon admission and this resolved after receiving IV fluids and oxygen saturation was 94% on room air. He stated that he would like to be discharged today as his nausea was better, abdominal pain was better and he has not had any loose stools last night or today. We will be sending him home with Zofran 4mg PO Q 6 hours as needed for nausea along with Lomatol twice a day for diarrhea if it returns. He needs to stay on Protonix 40mg. The patient showed remarkable improvement after IV fluids and IV medications after just two days. We will discharge him home today and followup with him in the office in one week. He is to continue with the BRAT diet times two more days and slowly increase his diet as tolerated. LABS: Hgb 12.9, hct 37.05, WBC 6.75, plt count 202, sodium was steady at 142 with potassium at 3.8 and glucose was 92 this morning. TIME SPENT: More than 60 minutes. MTDD
== END 2017-02-05 11:31 | disposition home or self-care (01) | DRG 392 ==
LOC: MEDSURG B 09:53
PROVIDERS: ADMIT Internal Medicine; ATTEND Internal Medicine
DX: K52.9 Noninfective gastroenteritis and colitis, unspecified (principal); E86.0 Dehydration; J44.9 Chronic obstructive pulmonary disease, unspecified; F41.8 Other specified anxiety disorders; E78.5 Hyperlipidemia, unspecified; R06.02 Shortness of breath; G89.29 Other chronic pain; M54.9 Dorsalgia, unspecified; D64.9 Anemia, unspecified; F17.200 Nicotine dependence, unspecified, uncomplicated; Z86.73 Personal history of transient ischemic attack (TIA), and cerebral infarction without residual deficits; Z79.02 Long term (current) use of antithrombotics/antiplatelets; Z79.899 Other long term (current) drug therapy
CPT/HCPCS: 36415; 80053; 85025; 87081; 93005; 93010; 99223; 99232; 99239

== ENCOUNTER 2017-08-01 10:54 | Inpatient (IN) ==
[2017-08-01 10:59] VITALS: BMI 24.3
--- NOTE | 2017-08-01 11:50 | DI ---
EXAM: CHEST FRONTAL AND LATERAL VIEWS HISTORY: Cough. COMPARISON: 02/02/2017 FINDINGS: Heart size is within normal limits. There is at least mild aortic atherosclerosis. Lungs are hyperinflated. Diffuse chronic-appearing interstitial changes. Lucency of the lung zones espec ially right lower lobe is most consistent with emphysematous bullae and these appear stable. There i s blunting of the right costophrenic angle probably related to scarring and pleural retraction, less likely a tiny pleural effusion. No vascular congestion. IMPRESSION: Moderately severe emphysema. No acute cardiopulmonary process.
--- NOTE | 2017-08-01 12:20 | ED.PDOC ---
General ED Provider: Dr. SERGIO TATE Chief Complaint: Non-specific Complaint Stated Complaint: VOMITING, DIARRHEA Time Seen by Physician: 11:00 (SEEN WITH NURSING STAFF HAS HAD 1 DAY INTERMITTENT DIARRHEA) Mode of Arrival: Walk-In Information Source: Patient Exam Limitations: No limitations Primary Care Provider: SERENA MCCORMICK Nursing and Triage Documentation Reviewed and Agree: Yes Reviewed sepsis parameters & appropriate labs ordered?: Yes System Inflammatory Response Syndrome: Not Applicable Sepsis Protocol: For patient's 13 years and over: Temp is 96.8 and below OR 101 and greater Pulse >90 BPM Resp >20/minute Acutely Altered Mental Status Are patient's symptoms suggestive of a new infection, such as: -Pneumonia -Skin, Soft Tissue -Endocarditis -UTI -Bone, Joint Infection -Implantable Device -Acute Abdominal Infection -Wound Infection -Meningitis -Blood Stream Catheter Infection -Unknown System Inflammatory Response Syndrome: Not Applicable GI Complaint Exam - Vomiting/Diarrhea Complaint/Exam Onset/Duration: 1DAY Symptoms Are: Still present Episodes of Vomiting over last 24 Hours: 2 Episodes of Diarrhea Over Last 24 Hours: 2 Initial Severity: Mild Current Severity: Mild Character of Vomiting: Reports: Non-bilious Aggravating: Reports: None Alleviating: Reports: None Associated Signs and Symptoms: Denies: Dizziness, Light-headedness, Melena, Hematemesis, Fever, Abdominal pain, Cramping Related History: Reports: Similar episode Non-GI Risk Factors: Reports: None Surgical Obstruction Risk Factors: Reports: None Related Surgical History: Reports: None Abdominal Findings: Present: None Differential Diagnoses: Viral Gastroenteritis Review of Systems - Review Of Systems Constitutional: Reports: No symptoms Eyes: Reports: No symptoms Ears, Nose, Mouth, Throat: Reports: No symptoms Respiratory: Reports: No symptoms Cardiac: Reports: No symptoms GI: Reports: Diarrhea : Reports: No symptoms Musculoskeletal: Reports: No symptoms Skin: Reports: No symptoms Neurological: Reports: No symptoms Endocrine: Reports: No symptoms Hematologic/Lymphatic: Reports: No symptoms All Other Systems: Reviewed and Negative Past Medical History - Past Medical History Previously Healthy: Yes Endocrine: Reports: None Cardiovascular: Reports: None Respiratory: Reports: None Hematological: Reports: None Gastrointestinal: Reports: None Genitourinary: Reports: None Neuro/Psych: Reports: None Musculoskeletal: Reports: None Cancer: Reports: None - Surgical History General Surgical History: Reports: None - Family History Family History: Reports: None - Social History Smoking Status: Current every day smoker, Light tobacco smoker Hx Substance Use: No Alcohol Screening: None - Immunizations Tetanus Shot up to Date: No Physical Exam - Physical Exam Appearance: Well-appearing, No pain distress, Well-nourished Eyes: VENKAT, EOMI, Conjunctiva clear ENT: Ears normal, Nose normal, Oropharynx normal Respiratory: Airway patent, Breath sounds clear, Breath sounds equal, Respirations nonlabored Cardiovascular: RRR, Pulses normal, No rub, No murmur GI/: Soft, Nontender, No masses, Bowel sounds normal, No Organomegaly Musculoskeletal: Normal strength, ROM intact, No edema, No calf tenderness Skin: Warm, Dry, Normal color Neurological: Sensation intact, Motor intact, Reflexes intact, Cranial nerves intact, Alert, Oriented Psychiatric: Affect appropriate, Mood appropriate Interpretation - Radiology Interpretation Radiology Interpretation By: Radiologist Radiology Results: No acute changes Critical Care Note - Critical Care Note Total Time (mins): 0 Course - Course Hematology/Chemistry: 08/01/17 11:20 08/01/17 11:20 Orders, Labs, Meds: Lab Review 08/01/17 08/01/17 08/01/17 11:15 11:15 11:20 WBC 8.59 RBC 4.60 L Hgb 15.6 Hct 42.3 MCV 92.0 MCH 33.9 H MCHC 36.9 H RDW Coeff of Luzma 12.4 Plt Count 321 Immature Gran % (Auto) 0.2 Neut % (Auto) 51.8 Lymph % (Auto) 37.4 [place] % (Auto) 9.4 Eos % (Auto) 0.6 Baso % (Auto) 0.6 Immature Gran # (Auto) 0.0 Neut # 4.5 Lymph # 3.2 [place] # 0.8 Eos # 0.1 Baso # 0.1 Sodium Potassium Chloride Carbon Dioxide Anion Gap BUN Creatinine Estimated GFR (MDRD) BUN/Creatinine Ratio Glucose Lactic Acid Calcium Total Bilirubin AST ALT Alkaline Phosphatase Total Protein Albumin Globulin Albumin/Globulin Ratio Procalcitonin Urine Color Yellow Urine Clarity Clear Urine pH 6.0 Ur Specific [place] 1.020 Urine Protein Negative Urine Glucose (UA) Negative Urine Ketones 1+ Urine Blood Negative Urine Nitrite Negative Urine Bilirubin 1+ Urine Urobilinogen 1.0 Ur Leukocyte Esterase Negative Influenza A (Rapid) Negative by naat Influenza B (Rapid) Negative by naat 08/01/17 08/01/17 08/01/17 11:20 11:20 11:20 WBC RBC Hgb Hct MCV MCH MCHC RDW Coeff of Luzma Plt Count Immature Gran % (Auto) Neut % (Auto) Lymph % (Auto) [place] % (Auto) Eos % (Auto) Baso % (Auto) Immature Gran # (Auto) Neut # Lymph # [place] # Eos # Baso # Sodium 142 Potassium 2.9 L Chloride 111 H Carbon Dioxide 22 L Anion Gap 11.9 BUN 7 Creatinine 0.89 Estimated GFR (MDRD) 87.00 BUN/Creatinine Ratio 7.86 Glucose 130 H Lactic Acid 30.2 H Calcium 9.5 Total Bilirubin 0.6 AST 10 L ALT < 6 L Alkaline Phosphatase 83 Total Protein 7.6 Albumin 3.7 Globulin 3.9 Albumin/Globulin Ratio 0.95 Procalcitonin < 0.05 Urine Color Urine Clarity Urine pH Ur Specific [place] Urine Protein Urine Glucose (UA) Urine Ketones Urine Blood Urine Nitrite Urine Bilirubin Urine Urobilinogen Ur Leukocyte Esterase Influenza A (Rapid) Influenza B (Rapid) Orders Category Date Time Status EKG-(ED ONLY) Stat CARDIO 08/01/17 11:11 Completed BLOOD CULTURE Stat LAB 08/01/17 11:20 Received CBC W/ AUTO DIFF Stat LAB 08/01/17 11:20 Completed COMPREHENSIVE METABOLIC PANEL Stat LAB 08/01/17 11:20 Completed FLU A/B MOLECULAR Stat LAB 08/01/17 11:15 Completed LACTIC ACID Stat LAB 08/01/17 11:20 Completed MOLECULAR GROUP A STREP Stat LAB 08/01/17 11:15 Completed PROCALCITONIN Stat LAB 08/01/17 11:20 Completed URINALYSIS C & S IF INDICATED Stat LAB 08/01/17 11:15 Completed CHEST, 2 VIEWS PA & LAT Stat RADS 08/01/17 11:11 Completed Vital Signs: Temp Pulse Resp BP Pulse Ox 08/01/17 10:55 98.2 F 109 H 24 124/86 97 Departure - Departure Time of Disposition: 12:21 Disposition: HOME SELF-CARE Discharge Problem: Hypokalemia Instructions: Hypokalemia (ED) Condition: Good Pt referred to PMD for follow-up: Yes IPMP verified?: No Allergies/Adverse Reactions: Allergies No Known Allergies Allergy (Verified 08/01/17 10:59) Home Medications: Ambulatory Orders Citalopram Hydrobromide [Celexa] 40 mg PO DAILY 02/10/16 Clopidogrel Bisulfate [Plavix] 75 mg PO DAILY 01/25/17 Diazepam [Valium] 5 mg PO TID 01/26/17 Ondansetron HCl [Zofran Tab] 4 mg PO Q6H PRN #15 tablet 02/05/17 Disposition Discussed With: Patient
[2017-08-01] MEDS ORDERED: ROCEPHIN 1 GM in SODIUM CHLORIDE 50 ML IV STA (12:29)
[2017-08-01] MEDS ORDERED: SODIUM CHLORIDE 1,000 ML IV SCH (12:30)
[2017-08-01] MEDS ORDERED: K-DUR PO STA (12:31)
[2017-08-01] MEDS ORDERED: ZOFRAN TAB PO PRN (12:33)
[2017-08-01] MEDS ORDERED: ROCEPHIN ONE (12:55)
[2017-08-01] MEDS ORDERED: LOMOTIL PO PRN (13:22)
[2017-08-01] MEDS ORDERED: POTASSIUM CHLORIDE PREMIX RUN 100 ML IV ONE (14:16)
[2017-08-01] MEDS: D5%-1/2NS-KCL 40 MEQ/L IV SOL 1,000 ML IV SCH (14:30)
[2017-08-01] MEDS: POTASSIUM CHLORIDE PREMIX RUN 10 MEQ in PREMIX 100 ML WATER 1 BAG IV STA ×2 (14:30→18:21)
[2017-08-01] MEDS: VALIUM PO SCH ×2 (14:35→20:48)
[2017-08-01] MEDS: K-DUR PO SCH ×2 (16:34→20:48)
[2017-08-01] MEDS: PRAVACHOL PO SCH (20:48)
[2017-08-01] MEDS: TYLENOL PO PRN (20:48)
[2017-08-02] MEDS ORDERED: POTASSIUM CHLORIDE 20 MEQ VIAL-ADDITIVE ONLY IV ONE (04:10)
[2017-08-02] MEDS: D5%-1/2NS-KCL 40 MEQ/L IV SOL 1,000 ML IV SCH ×2 (05:58→18:33)
[2017-08-02] MEDS: VALIUM PO SCH ×3 (08:42→20:17)
[2017-08-02] MEDS: PLAVIX PO SCH (08:42)
[2017-08-02] MEDS: ZOFRAN 4 MG/2 ML IVP PRN ×2 (08:44→14:46)
[2017-08-02] MEDS: TYLENOL PO PRN (10:41)
--- NOTE | 2017-08-02 11:16 | PCM.PROG ---
Attending Provider: ATTENDING PROVIDER: Dr. SERENA MCCORMICK This patient is seen with Anika Dang, Nurse Practitioner. DATE OF SERVICE: 08/02/17 SUBJECTIVE: This 62 year old WHITE/ M was hospitalized 08/01/17. The patient is lying in bed, alert. He says he feels nauseated this morning. Potassium has improved. REVIEW OF SYSTEMS: CONSTITUTIONAL: No night sweats. No fatigue, malaise, lethargy. No fever or chills. HEENT: Eyes: No visual changes. No eye pain. No eye discharge. ENT: No runny nose. No epistaxis. No sinus pain. No odynophagia. No congestion. RESPIRATORY: No cough, no congestion. No hemoptysis. No shortness of breath. CARDIOVASCULAR: No angina symptoms. No CHF symptoms. No atypical chest pain for CAD. No palpitations. No orthopnea.. GASTROINTESTINAL: Nausea. No abdominal pain. No diarrhea or constipation. No hematemesis. No hematochezia. GENITOURINARY: No urgency. No frequency. No dysuria. No hematuria. No obstructive symptoms. No discharge. No pain. No significant abnormal bleeding. MUSCULOSKELETAL: No musculoskeletal pain; no joint swelling. NEUROLOGICAL: Awake, alert, oriented to time, place and person. No headache. No neck pain. No syncope. No seizures. No dizziness. PSYCHIATRIC: Not anxious. No depression. No suicidal thoughts. No homicidal thoughts. SKIN: No rash. No lesions. No wounds. ENDOCRINE: No unexplained weight loss. No weight gain. HEMATOLOGIC/LYMPHATIC: No anemia. No purpura. No petechiae. No prolonged or excessive bleeding. No palpable lymph nodes. PHYSICAL EXAMINATION: GENERAL: The patient is awake, alert and oriented, lying/sitting in bed in no distress. VITAL SIGNS: Temperature 98.4 F, Pulse 75, Respiratory Rate 16, BP 116/69, Pulse Ox 97% HEENT: Head normocephalic, atraumatic. Eyes: Extraocular muscles are intact. Pupils are equal, round and reactive to light and accommodation. Ears: No lesions. Nose appeared normal. Throat: No exudate or erythema. NECK: Supple. No JVD, no carotid bruit. No lymphadenopathy or thyromegaly. LUNGS: Diminished breath sounds. Clear to auscultation. Percussion note normal. Chest symmetrical. HEART: S1, S2, no S3. No murmurs. No cyanosis or clubbing. No ascites. Pulses: Dorsalis pedis and posterior tibial pulses +1 to +2 both sides. ABDOMEN: Soft. Non-tender. Bowel sounds active. No CVA tenderness. No mass felt. EXTREMITIES: No edema. Full range of motion of all extremities, equal. NEUROLOGIC: No focal deficit. Cranial nerves II through XII are grossly intact. No headache, no double vision or headache. SKIN: Not dry. Intact. Turgor-normal. LYMPHATIC: No palpable lymph nodes/no lymphedema. MUSCULOSKELETAL: Normal joints with no swelling. Muscle tone is normal. LAB REVIEW: 08/02/17 05:00 08/02/17 05:00 08/02/17 05:00: Sodium 142, Potassium 4.4, Chloride 113 H, Carbon Dioxide 24, Anion Gap 9.4, BUN 9, Creatinine 0.87, Estimated GFR (MDRD) 90.00, BUN/ Creatinine Ratio 10.34, Glucose 100, Calcium 8.7, Total Bilirubin 0.4, AST 9 L, ALT < 6 L, Alkaline Phosphatase 68, Total Protein 5.8, Albumin 3.0 L, Globulin 2.8, Albumin/Globulin Ratio 1.07 08/02/17 05:00: WBC 5.68, RBC 4.05 L, Hgb 13.6 L, Hct 38.8 L, MCV 95.8 H, MCH 33.6 H, MCHC 35.1, RDW Coeff of Luzma 12.9, Plt Count 252, Immature Gran % (Auto) 0.2, Neut % (Auto) 34.5, Lymph % (Auto) 49.8, [place] % (Auto) 11.6 H, Eos % (Auto ) 2.8, Baso % (Auto) 1.1, Immature Gran # (Auto) 0.0, Neut # 2.0, Lymph # 2.8, [place] # 0.7, Eos # 0.2, Baso # 0.1 08/01/17 15:00: Sodium 143, Potassium 3.4 L, Chloride 112 H, Carbon Dioxide 25, Anion Gap 9.4, BUN 10, Creatinine 0.87, Estimated GFR (MDRD) 90.00, BUN/ Creatinine Ratio 11.49, Glucose 125 H, Calcium 8.7 ASSESSMENT: 1. Acute gastroenteritis 2. Hypokalemia resolved 3. Nausea 4. Diarrhea resolved PLAN: 1. Finish IV bag with 40 mEq of potassium 2. Hold oral potassium today 3. Potassium 20 mEq p.o. daily begin tomorrow 4. Zofran 4 mg IV Plan and coordination of the patient's care discussed in the presence of Frontload Driver and nurse. CONDITION: Stable SCRIBED BY: CARMELO MOHAMUD Business Line Controller scribed while in presence of service performed by Dr. Mccormick/Anika Dang APRN on 08/02/17 ([id number])
[2017-08-02] MEDS: PRAVACHOL PO SCH (20:17)
[2017-08-03] MEDS: ZOFRAN 4 MG/2 ML IVP PRN (06:05)
[2017-08-03] MEDS ORDERED: K-DUR PO SCH (08:00)
[2017-08-03] MEDS: VALIUM PO SCH (09:19)
[2017-08-03] MEDS: PLAVIX PO SCH (09:19)
--- NOTE | 2017-08-03 09:25 | CT ---
EXAM: CT ABDOMEN AND PELVIS HISTORY: Nausea TECHNIQUE: CT abdomen and pelvis without intravenous contrast. Images were reconstructed using 3 mm section thickness. Reformations were prepared. COMPARISON: 01/29/2017 FINDINGS: Diagnostic limitations exist without including contrast enhanced images. No focal hepatic or splenic lesions. Gallbladder is absent. Pancreas and adrenal glands are within normal limits. There is at least one punctate calcification within each kidney which could be vascular in nature or secondary t o calculi. No hydronephrosis or evidence of ureteral obstruction. Moderate vascular calcifications can be consistent with diabetic angiopathy and / or atherosclerosis. Stomach is mildly distended with food product. Normal appendix. Moderate fecal retention in the righ t colon. Normal bowel gas pattern. No prostate enlargement. Urinary bladder is unremarkable. No a scites or inflammatory infiltration of the abdominal fat. No ventral abdominal wall hernia. Postop changes extend from L4-S1. Emphysematous and fibrotic yeh ges within the lung bases. No pneumoperitoneum. IMPRESSION: 1. Stomach is mildly distended with food product. Consider gastroparesis, ileus or gastritis. No e vidence of gastric wall thickening. Moderate fecal retention right colon could be related to a degre e of constipation. Normal bowel gas pattern. Normal appendix. 2. Vascular calcifications.
[2017-08-03 09:51] VITALS: BP 137/80; TEMP 98.4
--- NOTE | 2017-08-03 10:26 | CM.DICTOOL ---
ADMISSION: 08/01/17 12:37 DISCHARGE: 08/03/17 DATE OF SERVICE: 08/03/17 FINAL DIAGNOSIS HYPOKALEMIA GSTROENTERITIS WITH DEHYDRATION (HOSPITALIZED AT [facility], 02/05) GERD COPD DYSLIPIDEMIA CVA, DR. HARTLEY, 2013 HISTORY OF HISTOPLASMOSIS - RIGHT LOWER LUNG RIGHT LOWER LOBE PNEUMONECTOMY (BENIGN) LUMBAR SURGERIES X 3 CHRONIC BACK PAIN (PAIN MANAGEMENT) DEPRESSION/ANXIETY BIPOLAR DISORDER (DR. THORNTON) LAST VITALS Temp Pulse Resp BP Pulse Ox 98.4 F 59 L 20 137/80 100 08/03/17 09:50 08/03/17 09:50 08/03/17 09:50 08/03/17 09:50 08/03/17 09:50 ACTIVE HOME MEDICATIONS Citalopram Hydrobromide (Celexa) 40 mg PO DAILY Clopidogrel Bisulfate (Plavix) 75 mg PO DAILY [facility] Last Admin: 08/03/17 09:19 Dose: 75 mg Diazepam (Valium) 5 mg PO TID [facility] Last Admin: 08/03/17 09:19 Dose: 5 mg Ondansetron HCl (Zofran 4 Mg/2 Ml) 4 mg PO Q6H PRN PRN Reason: Nausea / Vomiting Last Admin: 08/03/17 06:05 Dose: 4 mg Pravastatin Sodium (Pravachol) 40 mg PO BEDTIME [facility] Last Admin: 08/02/17 20:17 Dose: 40 mg ALLERGIES No Known Allergies Allergy (Verified 08/01/17 10:59) NEW PRESCRIPTIONS: REFILL PRESCRIPTION HAS BEEN INCLUDED FOR YOUR ZOFRAN NEW PRESCRIPTIONS K-DUR 20 MEQ, TAKE ONE TABLET BY MOUTH WITH MEALS DAILY FOR 7 DAYS PROTONIX 40 MG, TAKE ONE TABLET BY MOUTH TWICE DAILY BEFORE MEALS FOR 30 DAYS CARAFATE 1 GRAM, TAKE ONE TABLET BY MOUTH BEFORE MEALS AND AT BEDTIME FOR 30 DAYS SMOKING: CURRENT EVERY DAY SMOKER THE PATIENT HAS RECEIVED SMOKING CESSATION INSTRUCTION/ENCOURAGEMENT DURING THIS STAY. HE IS AWARE OF THE ADDED RISK TO HIS CARDIOPULMONARY/VASCULAR HEALTH CONTINUED SMOKING MAY CAUSE. HE HAS NOT VERBALIZED HIS INTENT TO STOP SMOKING. HE WILL BENEFIT FROM REINFORCEMENT OF THIS TEACHING AND CONTINUED ENCOURAGEMENT FOR COMPLETE CESSATION. DISEASE SPECIFIC EDUCATION: HYPOKALEMIA DEHYDRATION GASTROENTERITIS HOME MEDICATIONS NEW PRESCRIPTIONS FOLLOW UP LAB REVIEW: 08/03/17 04:05 08/03/17 04:05 08/03/17 04:05: Sodium 140, Potassium 3.9, Chloride 110 H, Carbon Dioxide 23, Anion Gap 10.9, BUN 9, Creatinine 0.84, Estimated GFR (MDRD) 93.00, BUN/ Creatinine Ratio 10.71, Glucose 94, Calcium 8.7, Total Bilirubin 0.4, AST 10 L, ALT 7 L, Alkaline Phosphatase 70, Total Protein 6.2, Albumin 3.1 L, Globulin 3.1 , Albumin/Globulin Ratio 1.00 08/03/17 04:05: WBC 6.86, RBC 4.21 L, Hgb 14.2, Hct 40.0 L, MCV 95.0 H, MCH 33.7 H, MCHC 35.5 H, RDW Coeff of Luzma 12.8, Plt Count 273, Immature Gran % (Auto ) 0.3, Neut % (Auto) 44.9, Lymph % (Auto) 40.2, [place] % (Auto) 10.8 H, Eos % ( Auto) 3.1, Baso % (Auto) 0.7, Immature Gran # (Auto) 0.0, Neut # 3.1, Lymph # 2.8, [place] # 0.7, Eos # 0.2, Baso # 0.1 PLAN: DISCHARGE HOME TODAY RETURN TO SEE DR. MCCORMICK IN HIS OFFICE IN 5-7 DAYS. PLEASE CALL TO SCHEDULE YOUR FOLLOW UP APPOINTMENT ([phone]) RESUME YOUR HOME MEDICATIONS PER LIST PROVIDED BY THE NURSING STAFF REFILL PRESCRIPTION HAS BEEN INCLUDED FOR YOUR ZOFRAN NEW PRESCRIPTIONS K-DUR 20 MEQ, TAKE ONE TABLET BY MOUTH WITH MEALS DAILY FOR 7 DAYS PROTONIX 40 MG, TAKE ONE TABLET BY MOUTH TWICE DAILY BEFORE MEALS FOR 30 DAYS CARAFATE 1 GRAM, TAKE ONE TABLET BY MOUTH BEFORE MEALS AND AT BEDTIME FOR 30 DAYS ACTIVITY GET PLENTY OF REST AT HOME. GRADUALLY INCREASE YOUR ACTIVITY LEVEL ACCORDING TO YOUR TOLERATION DIET HEALTHY HEART TOLERATED SUMMARY THE PATIENT IS ALERT AND ORIENTED X3. HE CURRENTLY RESIDES AT HOME WITH HIS SPOUSE. HE HAS BEEN INDEPENDENT WITH ADL'S AND REQUIRES NO DME, HOME HEALTH OR HOMEMAKING SERVICES. HE DESIRES TO RETURN HOME AFTER DISCHARGE. HIS SKIN TURGOR IS INTACT AND WITHOUT DECUBITUS ULCERS. HYDRATION AND NUTRITIONAL STATUS ARE GOOD. THE PATIENT HAS NOT EXPERIENCED FURTHER VOMITING OR DIARRHEA SINCE ADMISSION. HE IS AWARE AND AGREEABLE FOR TODAY'S DISCHARGE PLANS. CURRENT CODE STATUS FULL CODE ZAY CUELLAR APRN SERENA MCCORMICK M.D.
--- NOTE | 2017-08-03 11:01 | PCM.PROG ---
Attending Provider: ATTENDING PROVIDER: Dr. SERENA MCCORMICK This patient is seen with Anika Dang, Nurse Practitioner. DATE OF SERVICE: 08/03/17 SUBJECTIVE: This 62 year old WHITE/ M was hospitalized 08/01/17. The patient is lying in bed. He is ready to go home, is feeling better. He has been eating 75 to 100% of his meals. REVIEW OF SYSTEMS: CONSTITUTIONAL: No night sweats. No fatigue, malaise, lethargy. No fever or chills. HEENT: Eyes: No visual changes. No eye pain. No eye discharge. ENT: No runny nose. No epistaxis. No sinus pain. No odynophagia. No congestion. RESPIRATORY: No cough, no congestion. No hemoptysis. No shortness of breath. CARDIOVASCULAR: No angina symptoms. No CHF symptoms. No atypical chest pain for CAD. No palpitations. No orthopnea.. GASTROINTESTINAL: Nausea. No abdominal pain. No diarrhea or constipation. No hematemesis. No hematochezia. GENITOURINARY: No urgency. No frequency. No dysuria. No hematuria. No obstructive symptoms. No discharge. No pain. No significant abnormal bleeding. MUSCULOSKELETAL: No musculoskeletal pain; no joint swelling. NEUROLOGICAL: Awake, alert, oriented to time, place and person. No headache. No neck pain. No syncope. No seizures. No dizziness. PSYCHIATRIC: Not anxious. No depression. No suicidal thoughts. No homicidal thoughts. SKIN: No rash. No lesions. No wounds. ENDOCRINE: No unexplained weight loss. No weight gain. HEMATOLOGIC/LYMPHATIC: No anemia. No purpura. No petechiae. No prolonged or excessive bleeding. No palpable lymph nodes. PHYSICAL EXAMINATION: GENERAL: The patient is awake, alert and oriented, lying in bed in no distress. VITAL SIGNS: Temperature 98.2 F, Pulse 81, Respiratory Rate 16, BP 120/76, Pulse Ox 98% HEENT: Head normocephalic, atraumatic. Eyes: Extraocular muscles are intact. Pupils are equal, round and reactive to light and accommodation. Ears: No lesions. Nose appeared normal. Throat: No exudate or erythema. NECK: Supple. No JVD, no carotid bruit. No lymphadenopathy or thyromegaly. LUNGS: Diminished breath sounds bilaterally. Clear to auscultation. Percussion note normal. Chest symmetrical. HEART: S1, S2, no S3. No murmurs. No cyanosis or clubbing. No ascites. Pulses: Dorsalis pedis and posterior tibial pulses +1 to +2 both sides. ABDOMEN: Soft. Non-tender. Bowel sounds active. No CVA tenderness. No mass felt. EXTREMITIES: No edema. Full range of motion of all extremities, equal. NEUROLOGIC: No focal deficit. Cranial nerves II through XII are grossly intact. No headache, no double vision or headache. SKIN: Not dry. Intact. Turgor-normal. LYMPHATIC: No palpable lymph nodes/no lymphedema. MUSCULOSKELETAL: Normal joints with no swelling. Muscle tone is normal. LAB REVIEW: 08/03/17 04:05 08/03/17 04:05 08/03/17 04:05: Sodium 140, Potassium 3.9, Chloride 110 H, Carbon Dioxide 23, Anion Gap 10.9, BUN 9, Creatinine 0.84, Estimated GFR (MDRD) 93.00, BUN/ Creatinine Ratio 10.71, Glucose 94, Calcium 8.7, Total Bilirubin 0.4, AST 10 L, ALT 7 L, Alkaline Phosphatase 70, Total Protein 6.2, Albumin 3.1 L, Globulin 3.1 , Albumin/Globulin Ratio 1.00 08/03/17 04:05: WBC 6.86, RBC 4.21 L, Hgb 14.2, Hct 40.0 L, MCV 95.0 H, MCH 33.7 H, MCHC 35.5 H, RDW Coeff of Luzma 12.8, Plt Count 273, Immature Gran % (Auto ) 0.3, Neut % (Auto) 44.9, Lymph % (Auto) 40.2, [place] % (Auto) 10.8 H, Eos % ( Auto) 3.1, Baso % (Auto) 0.7, Immature Gran # (Auto) 0.0, Neut # 3.1, Lymph # 2.8, [place] # 0.7, Eos # 0.2, Baso # 0.1 ASSESSMENT: 1. Acute gastroenteritis, improved 2. Hypokalemia resolved 3. Nausea 4. Diarrhea resolved PLAN: 1. CT scan of abdomen without (check to see if one has been done) 2. D/C home 3. Protonix 40 mg b.i.d. 4. Potassium 20 mEq for one week 5. Carafate 1 gm q.i.d. Plan and coordination of the patient's care discussed in the presence of Register Repairer and nurse. CONDITION: Stable SCRIBED BY: CARMELO MOHAMUD Acute Care Assistant scribed while in presence of service performed by Dr. Mccormick/Anika Dang APRN on 08/03/17 ([id number])
--- NOTE | 2017-08-06 07:48 | PN ---
DATE OF SERVICE: 08/01/17 SUBJECTIVE: The patient was seen in the emergency. He was brought for having nausea and vomiting and diarrhea for past 6-7 days. The patient looked ill. His skin was dry. PHYSICAL EXAMINATION: HEENT: Head normocephalic, atraumatic. Eyes: Extraocular muscles are intact. Pupils are equal, round and reactive to light and accommodation. Ears: No lesions. Nose appeared normal. Throat: No exudate or erythema. NECK: Supple. No JVD, no carotid bruit. No lymphadenopathy or thyromegaly. LUNGS: Decreased breath sounds with mild wheeze. Clear to auscultation. Percussion note normal. Chest symmetrical. HEART: S1, S2, no S3. No murmurs. No cyanosis or clubbing. No ascites. Pulses: Dorsalis pedis and posterior tibial pulses +1 to +2 both sides. ABDOMEN: Soft. Nontender. Bowel sounds active. No CVA tenderness. No mass felt. EXTREMITIES: No edema. Full range of motion of all extremities, equal. NEUROLOGIC: No focal deficit. Cranial nerves II through XII are grossly intact. No headache, no double vision or headache. SKIN: Not dry. Intact. Turgor -Poor. LYMPHATIC: No palpable lymph nodes/no lymphedema. MUSCULOSKELETAL: Normal joints with no swelling. Muscle tone is normal. LABS: Potassium 2.8 ASSESSMENT: 1. Acute gastroenteritis with dehydration 2. Severe hypokalemia 3. Severe chronic lung disease with smoking PLAN: 1. Give IV potassium 2. PO potassium 3. Treat acute gastroenteritis symptomatic with Zofran and Lomotil CONDITION: Stable TIME SPENT: More than 30 minutes. Plan and coordination of the patient's care discussed in the presence of nurse. TRESSA
--- NOTE | 2017-08-06 10:13 | PN ---
DATE OF SERVICE: 08/02/17 SUBJECTIVE: 62 year old white male was hospitalized with acute gastroenteritis and hypokalemia. Hypokalemia has resolved. PHYSICAL EXAMINATION: VITAL SIGNS: Blood pressure 116/69 and pulse ox 97% on 2 liters, pulse 75. HEENT: Head normocephalic, atraumatic. Eyes: Extraocular muscles are intact. Pupils are equal, round and reactive to light and accommodation. Ears: No lesions. Nose appeared normal. Throat: No exudate or erythema. NECK: Supple. No JVD, no carotid bruit. No lymphadenopathy or thyromegaly. LUNGS: Clear to auscultation. Percussion note normal. Chest symmetrical. HEART: S1, S2, no S3. No murmurs. No cyanosis or clubbing. No ascites. Pulses: Dorsalis pedis and posterior tibial pulses +1 to +2 both sides. ABDOMEN: Soft. Nontender. Bowel sounds active. No CVA tenderness. No mass felt. EXTREMITIES: No edema. Full range of motion of all extremities, equal. NEUROLOGIC: No focal deficit. Cranial nerves II through XII are grossly intact. No headache, no double vision or headache. SKIN: Not dry. Intact. Turgor - a lot better. LYMPHATIC: No palpable lymph nodes/no lymphedema. MUSCULOSKELETAL: Normal joints with no swelling. Muscle tone is normal. LABS: Creatinine 0.8, BUN 9, potassium 4.4 CONDITION: Improving. The patient was seen and examined with Nurse Practitioner. TIME SPENT: More than 30 minutes. Plan and coordination of the patient's care discussed in the presence of nurse. TRESSA
--- NOTE | 2017-08-06 10:15 | PN ---
DATE OF SERVICE: 08/03/17 SUBJECTIVE: The patient was hospitalized with acute gastroenteritis which has resolved. He wants to go home. The patient's condition it stable. The patient will be discharged on Zofran, Carafate and Protonix. The patient was seen and examined with Nurse Practitioner. TIME SPENT: More than 30 minutes. Plan and coordination of the patient's care discussed in the presence of nurse. TRESSA
--- NOTE | 2017-08-09 10:59 | PN ---
CODING FOR BILLING 08/01/17 LEVEL 5 08/02/17 INTERMEDIATE 08/03/17 DISCHARGE MTDD
--- NOTE | 2017-08-27 13:30 | HP ---
DATE OF SERVICE: 08/01/17 HISTORY OF PRESENT ILLNESS: This is a 62-year-old white male who presented to the emergency room complaining of vomiting and diarrhea that he had had for the past 3 to 4 days. He was afebrile. PAST MEDICAL HISTORY: Dyslipidemia Depression Bipolar CVA Right lower lobe histoplasmosis Status post right partial pneumonectomy PAST SURGICAL HISTORY: Back surgery Cholecystectomy Right partial pneumonectomy REVIEW OF SYSTEMS: CONSTITUTIONAL: Positive for fatigue and weakness. No night sweats. No malaise , lethargy. No fever or chills. HEENT: Eyes: No visual changes. No eye pain. No eye discharge. ENT: No runny nose. No epistaxis. No sinus pain. No sore throat. No odynophagia. No ear pain. No congestion. RESPIRATORY: No cough, no congestion. No hemoptysis. No shortness of breath. CARDIOVASCULAR: No angina symptoms. No CHF symptoms. No atypical chest pain for CAD. No palpitations. No orthopnea. GASTROINTESTINAL: Positive for nausea, vomiting and diarrhea. Decreased appetite. No abdominal pain. No hematemesis. No hematochezia. GENITOURINARY: No urgency. No frequency. No dysuria. No hematuria. No obstructive symptoms. No discharge. No pain. No significant abnormal bleeding. MUSCULOSKELETAL: No musculoskeletal pain. No joint swelling. No arthritis. NEUROLOGICAL: No headache. No neck pain. No syncope. No seizures. No dizziness. PSYCHIATRIC: Not anxious. No depression. No suicidal thoughts. No homicidal thoughts. SKIN: No rash. No lesions. No wounds. ENDOCRINE: No unexplained weight loss. No weight gain. HEMATOLOGIC/LYMPHATIC: No anemia. No purpura. No petechiae. No prolonged or excessive bleeding. No palpable lymph nodes. PERSONAL/FAMILY/SOCIAL HISTORY: The patient is . He is a smoker. He has a history of bipolar disorder and noncompliance. MEDICATIONS: (HOME) Celexa 40 mg p.o. daily Plavix 75 mg p.o. daily Valium 5 mg p.o. t.i.d. Zofran 4 mg p.o. q.6h p.r.n. Pravachol 40 mg p.o. bedtime ALLERGIES: NKDA PHYSICAL EXAMINATION: VITAL SIGNS: Temperature 98.2, heart rate 109, respirations 24, BP 124/86, pulse ox 97. GENERAL: The patient is well-nourished in no acute distress, pale, clammy. HEENT: Head normocephalic, atraumatic. Eyes: Extraocular muscles are intact. Pupils are equal, round and reactive to light and accommodation. Ears: No lesions. Nose appeared normal. Throat: No exudate or erythema. NECK: Supple. No JVD, no carotid bruit. No lymphadenopathy or thyromegaly. LUNGS: Diminished breath sounds bilaterally. Clear to auscultation. Percussion note normal. Chest symmetrical. HEART: S1, S2, no S3. No murmurs. No cyanosis or clubbing. No ascites. Pulses: Dorsalis pedis and posterior tibial pulses +1 to +2 both sides. ABDOMEN: Soft. Nontender. Bowel sounds active. No CVA tenderness. No mass felt. EXTREMITIES: No edema. Full range of motion of all extremities, equal. NEUROLOGIC: No focal deficit. Cranial nerves II through XII are grossly intact. No headache, no double vision or headache. SKIN: Not dry. Intact. Turgor - normal. LYMPHATIC: No palpable lymph nodes/no lymphedema. MUSCULOSKELETAL: Normal joints with no swelling. Muscle tone is normal. LAB VALUES: White count 8.59, hemoglobin 15.6, hematocrit 42.3, platelets 321. Flu A and B negative. Potassium 2.9, chloride 111, BUN 7, creatinine 0.89. Lactic acid 30.2 , AST 10, ALT 6. Total protein 7.6, albumin 3.7, globulin 3.9. Urine showed +1 ketones and +1 bilirubin otherwise negative. Rapid flu was negative. ASSESSMENT: 1. ACUTE GASTROENTERITIS 2. ACUTE HYPOKALEMIA DUE TO GASTROENTERITIS 3. COPD 4. WEAKNESS 5. DEHYDRATION PLAN: 1. Will admit the patient. 2. Routine telemetry. 3. CBC, CMP daily. 4. Start potassium 40 mEq in IV fluids and give 125 cc an hour, start 20 mEq potassium four times a day orally. 5. Zofran 4 mg p.o. q.6hr p.r.n. for nausea. 6. Protonix 40 mg p.o. daily. 7. Lomotil 2.5 mg t.i.d. p.r.n. for diarrhea. 8. BRAT diet. 9. CBC, CMP daily. 10. We will follow closely. TIME SPENT: More than 70 minutes. MTDD
--- NOTE | 2017-08-29 09:53 | DS ---
DATE OF SERVICE: 08/03/17 FINAL DIAGNOSIS: 1. HYPOKALEMIA 2. GASTROENTERITIS WITH DEHYDRATION (HOSPITALIZED AT [facility] 02/05) 3. GASTROESOPHAGEAL REFLUX DISEASE 4. CHRONIC OBSTRUCTIVE PULMONARY DISEASE 5. CEREBRAL VASCULAR ACCIDENT - DR. BRYAN 2013 6. HISTORY OF HISTOPLASMOSIS RIGHT LOWER LUNG 7. RIGHT LOWER LOBE PNEUMONECTOMY BENIGN 8. LUMBAR SURGERIES TIMES THREE 9. LOW BACK PAIN (PAIN MANAGEMENT) 10. DEPRESSION/ANXIETY 11. BIPOLAR DISORDER (DR. THORNTON) VITAL SIGNS AT DISCHARGE: Temperature 98.4, pulse 59, respiratory rate 20, blood pressure 137/80 and pulse oximetry 100%. MEDICATIONS: Celexa 40 mg Plavix 75 mg Valium 5 mg three times daily Zofran 4 mg every 6 hours prn Pravachol 40 mg at bedtime NEW MEDICATIONS: Refill Zofran K-Dur 20 mEq with meals times 7 days Protonix 40 mg twice daily before meals Carafate 1 gram before meals and at bedtime for 30 days SMOKING: Current every day smoker. The patient has received smoking cessation instructions/encouragement during this hospital stay. He is aware of the added risk to his cardiopulmonary/vascular health continued smoking may cause. He has not verbalized his intention to stop smoking. He will benefit from reenforcement of this teaching and continued encouragement for complete cessation. DISEASE SPECIFIC EDUCATION: Hypokalemia Gastroenteritis Dehydration Home medication New Prescriptions Follow up LABS: WBC 6.86, hemoglobin 14.2, hematocrit 40.0, MCV 95.0, MCH 33.7, AST 10, ALT 7, Chloride 110, BUN 9, creatinine 0.84. PLAN: 1. Discharge the patient to home. 2. Return to see Dr. Mayer in the office within 5 to 7 days. Please call to schedule the appointment at [phone]. 3. Resume all home medications as per the ist provided by the nursing staff. 4. Refill prescription has been included for your Zofran. 5. Activity: Get plenty of rest at home. Gradually increase your activity level according to your toleration. 6. Diet: Heart healthy as tolerated. HOSPITAL COURSE: This is a white male, who presented to the emergency room with vomited and diarrhea. He had been experiencing diarrhea for the past several days. His potassium is extremely low at 2.9 He was subsequently admitted and placed on IV fluids, D5 1/2 NS at 75 cc/hr with 125 cc an hour, 40 mEq in the bag along with potassium 20 mEq q.i.d. He was given Zofran 4 mg IV q.6hr, started on Protonix 40 mg p.o. daily. He was also started on Carafate 1 gm q.i.d. before meals. Over the course of 48 hours the patient's potassium resolved within 24 hours and was 4.4 the following day. We will send him home with potassium 20 mEq once daily for the next 7 days as his potassium level should stay steady as his diarrhea has resolved. We will also send him home with Protonix to take twice daily for 30 days and Carafate to take q.i.d. for the next 30 days. The patient is a heavy smoker. Chest x-ray showed changes associated with COPD. Information regarding smoking cessation was provided. After the first 24 hours his lab values normalized at discharge. White count 6.86, hemoglobin 14.2, hematocrit 40.0, platelets 273, sodium 140, potassium 3.9, BUN 9, creatinine 0.84. On the day of discharge, the patient had been eating 75 to 100% of his meals for the past 24 hours. He stated the diarrhea had stopped. He still had very mild nausea but it was relieved with Zofran. Will give him Zofran 4 mg p.o. to take at home. He does have a long history of constant nausea and abdominal complaints so a CT scan of his abdomen without contrast was done prior to discharge which showed changes associated with gastritis. This is typical of his symptoms. Temperature 98.4, heart rate 59, respirations 20, BP 137/80, pulse ox 100%. Although his symptoms had not completely 100% resolved due to inclement bad weather, the patient was adamant about going home. This day as symptoms had significantly improved and he was worried about his being at home and being snowed in by herself so he was discharged in stable condition. He has a history of noncompliance with followup in our office. He does not typically come for regular appointments. We instructed that he is to followup in our office within the next week. He is instructed to call and schedule the appointment. We will see him for followup. TIME SPENT: More than 60 minutes. TRESSA
== END 2017-08-03 11:34 | disposition home or self-care (01) | DRG 641 ==
LOC: ED 10:54 → MEDSURG B 12:37
PROVIDERS: ADMIT Internal Medicine; ATTEND Internal Medicine
DX: E87.6 Hypokalemia (principal); K52.9 Noninfective gastroenteritis and colitis, unspecified; E86.0 Dehydration; J44.9 Chronic obstructive pulmonary disease, unspecified; K21.9 Gastro-esophageal reflux disease without esophagitis; M54.5 Low back pain; F41.8 Other specified anxiety disorders; F31.9 Bipolar disorder, unspecified; F17.210 Nicotine dependence, cigarettes, uncomplicated; Z86.73 Personal history of transient ischemic attack (TIA), and cerebral infarction without residual deficits; Z79.02 Long term (current) use of antithrombotics/antiplatelets; Z79.899 Other long term (current) drug therapy; Z86.19 Personal history of other infectious and parasitic diseases; Z98.890 Other specified postprocedural states
CPT/HCPCS: 36415; 80048; 80053; 81001; 83605; 84145; 85025; 87040; 87502; 87651; 93005; 93010; 96365; 99223; 99232; 99239; 99285

== ENCOUNTER 2018-03-01 11:08 | Inpatient (IN) ==
[2018-03-01] MEDS ORDERED: SODIUM CHLORIDE 1,000 ML IV STA (11:49)
[2018-03-01] MEDS ORDERED: SODIUM CHLORIDE 1,000 ML IV SCH (12:00)
[2018-03-01] MEDS ORDERED: SODIUM CHLORIDE 0.9%-KCL 20 MEQ 1,000 ML IV SCH (12:00)
--- NOTE | 2018-03-01 12:38 | ED.PDOC ---
General ED Provider: Dr. SERGIO TATE Chief Complaint: Psychiatric Complaint Stated Complaint: depressed over his 's failure to thrive Time Seen by Physician: 11:11 Mode of Arrival: Walk-In Information Source: Patient, Family Exam Limitations: No limitations Primary Care Provider: SERENA MCCORMICK Nursing and Triage Documentation Reviewed and Agree: Yes Does patient meet sepsis criteria?: No System Inflammatory Response Syndrome: Not Applicable Sepsis Protocol: For patient's 13 years and over: Temp is 96.8 and below OR 101 and greater Pulse >90 BPM Resp >20/minute Acutely Altered Mental Status Are patient's symptoms suggestive of a new infection, such as: -Pneumonia -Skin, Soft Tissue -Endocarditis -UTI -Bone, Joint Infection -Implantable Device -Acute Abdominal Infection -Wound Infection -Meningitis -Blood Stream Catheter Infection -Unknown Psychological Complaint Exam - Psychiatric Complaint/Exam Patient Complains Of: Present: Depression. Absent: Suicidal thoughts, Suicidal gestures Onset/Duration: 2 weeks ago Symptoms Are: Still present Timing: Constant Episodes Lasting: Days Initial Severity: Severe Current Severity: Severe Character: Present: Depressed, Fearful, Anxious Aggravating: Reports: Recent stress (loss of his ). Denies: Alcohol use, Drug use Associated Signs And Symptoms: Reports: Sleep disturbance, Appetite change. Denies: Hostile, Confused, Hallucinating, Paranoid behavior Related History: Denies: Suicidal thoughts, Suicidal plan, Suicidal gestures, Homicidal thoughts, Homicidal plan, Homicidal gestures, Prior attempts, Recent stressors Completed Suicide Risk Factors: None Patient Accompanied By: Family Patient In Custody Of Police: No Social Withdrawal Present: Yes Social Isolation Present: Yes Prior Suicide Attempt: No Injury From Prior Suicide Attempt: No (n/a) Related Surgical History: Reports: None Patient Uncooperative For Exam: No Mood: Present: Depressed, Anxious Appearance: Present: Clean Thought Process: Present: Logical Insight: Present: Good Memory: Intact Judgement: Normal Danger To Others: No Patient Medically Stable For: Psych evaluation Differential Diagnoses: Depression Review of Systems - Review Of Systems Constitutional: Reports: Malaise, Weakness Eyes: Reports: No symptoms Ears, Nose, Mouth, Throat: Reports: No symptoms Respiratory: Reports: Cough Cardiac: Reports: No symptoms GI: Reports: No symptoms : Reports: No symptoms Musculoskeletal: Reports: No symptoms Skin: Reports: No symptoms Neurological: Reports: Emotional problems Endocrine: Reports: No symptoms Hematologic/Lymphatic: Reports: No symptoms All Other Systems: Reviewed and Negative Past Medical History - Past Medical History Previously Healthy: Yes Endocrine: Reports: None Cardiovascular: Reports: None Respiratory: Reports: None Hematological: Reports: None Gastrointestinal: Reports: None Genitourinary: Reports: None Neuro/Psych: Reports: None Musculoskeletal: Reports: None Cancer: Reports: None - Surgical History General Surgical History: Reports: None - Family History Family History: Reports: None - Social History Smoking Status: Current every day smoker, Light tobacco smoker Hx Substance Use: No Alcohol Screening: None - Immunizations Tetanus Shot up to Date: No Physical Exam - Physical Exam Appearance: Well-appearing, No pain distress, Well-nourished Eyes: VENKAT, EOMI, Conjunctiva clear ENT: Ears normal, Nose normal, Dry mucosa Respiratory: Airway patent, Breath sounds clear, Breath sounds equal, Respirations nonlabored Cardiovascular: RRR, Pulses normal, No rub, No murmur GI/: Soft, Nontender, No masses, Bowel sounds normal, No Organomegaly Musculoskeletal: Normal strength, ROM intact, No edema, No calf tenderness Skin: Warm, Dry, Normal color Neurological: Sensation intact, Motor intact, Reflexes intact, Cranial nerves intact, Alert, Oriented Psychiatric: Affect appropriate, Mood appropriate Physician Notification - Case Discussed Physician Notified: pmd Time of Notification: 12:38 Admit To: Inpatient Critical Care Note - Critical Care Note Total Time (mins): 0 Course - Course Hematology/Chemistry: 03/01/18 12:00 03/01/18 12:00 Orders, Labs, Meds: Lab Review 03/01/18 03/01/18 12:00 12:00 WBC 5.78 RBC 4.94 Hgb 16.4 Hct 46.2 MCV 93.5 MCH 33.2 H MCHC 35.5 H RDW Coeff of Luzma 12.6 Plt Count 225 Immature Gran % (Auto) 0.2 Neut % (Auto) 58.1 Lymph % (Auto) 32.7 [place] % (Auto) 7.4 Eos % (Auto) 0.7 Baso % (Auto) 0.9 Immature Gran # (Auto) 0.0 Neut # (Auto) 3.4 Lymph # (Auto) 1.9 [place] # (Auto) 0.4 Eos # (Auto) 0.0 Baso # (Auto) 0.1 Sodium 138 Potassium 4.3 Chloride 105 Carbon Dioxide 24 Anion Gap 13.3 BUN 8 Creatinine 0.95 Estimated GFR (MDRD) 81.00 BUN/Creatinine Ratio 8.42 Glucose 106 Calcium 9.9 Total Bilirubin 0.6 AST 11 L ALT 10 L Alkaline Phosphatase 84 Total Protein 7.4 Albumin 3.8 Globulin 3.6 Albumin/Globulin Ratio 1.06 Orders Category Date Time Status EKG-(ED ONLY) Stat CARDIO 03/01/18 11:48 Completed EKG-(IP & OP ONLY) DAILY CARDIO 03/02/18 06:00 Ordered EKG-(IP & OP ONLY) DAILY CARDIO 03/03/18 06:00 Ordered EKG-(IP & OP ONLY) DAILY CARDIO 03/04/18 06:00 Ordered ACTIVITY .BR with BRP CARE 03/01/18 11:57 Active INTAKE & OUTPUT Q8HR CARE 03/01/18 11:57 Active VITAL SIGNS Q8HR CARE 03/01/18 11:57 Active REGULAR DIET DIETARY 03/01/18 Lunch Ordered ED IV/MEDIPORT/POWERPORT .ONCE EMERGENCY 03/01/18 11:48 Active CBC W/ AUTO DIFF DAILY@0600 LAB 03/02/18 06:00 Ordered CBC W/ AUTO DIFF DAILY@0600 LAB 03/03/18 06:00 Ordered CBC W/ AUTO DIFF Stat LAB 03/01/18 12:00 Completed COMPREHENSIVE METABOLIC PANEL DAILY@0600 LAB 03/02/18 06:00 Ordered COMPREHENSIVE METABOLIC PANEL DAILY@0600 LAB 03/03/18 06:00 Ordered COMPREHENSIVE METABOLIC PANEL Stat LAB 03/01/18 12:00 Completed URINALYSIS C & S IF INDICATED Stat LAB 03/01/18 11:48 Uncollected 0.9 % Sodium Chloride [Saline Flush] MEDS 03/01/18 11:48 Active 1 syr IVF PRN PRN Citalopram Hydrobromide [Celexa] MEDS 03/02/18 09:00 Ordered 40 mg PO DAILY Clopidogrel Bisulfate [Plavix] MEDS 03/02/18 09:00 Ordered 75 mg PO DAILY Pantoprazole Sodium [Protonix] MEDS 03/01/18 17:00 Ordered 40 mg PO BIDAC Potassium Chloride in 0.9%NaCl [Sodium Chloride 0.9%- MEDS 03/01/18 12:00 Ordered KCl 20 Meq] 1,000 ml IV 75 mls/hr Sodium Chloride 0.9% [Sodium Chloride] 1,000 ml MEDS 03/01/18 11:49 Active IV 100 mls/hr Sodium Chloride 0.9% [Sodium Chloride] 1,000 ml MEDS 03/01/18 12:00 Active IV 75 mls/hr Sucralfate Susp [Carafate] MEDS 03/01/18 17:00 Ordered 1 gm PO ACHS Medications Generic Name Dose Route Start Last Admin Trade Name Freq PRN Reason Stop Dose Admin Clopidogrel Bisulfate 75 mg 03/02/18 09:00 Plavix PO DAILY DENIA Sodium Chloride 1,000 mls @ 100 mls/hr 03/01/18 11:49 03/01/18 12:25 Sodium Chloride IV 03/01/18 21:48 100 mls/hr .Q10H STA Administration Sodium Chloride 1,000 mls @ 75 mls/hr 03/01/18 12:00 Sodium Chloride IV .[id number] DENIA Potassium Chloride/Sodium Chloride 1,000 mls @ 75 mls/hr 03/01/18 12:00 Sodium Chloride 0.9%-Kcl 20 Meq IV .[id number] DENIA Non-Formulary Medication 40 mg 03/02/18 09:00 Citalopram Hydrobromide [Celexa] PO DAILY DENIA Pantoprazole Sodium 40 mg 03/01/18 17:00 Protonix PO BIDAC DENIA Sodium Chloride 1 syr 03/01/18 11:48 Saline Flush IVF PRN PRN To flush IV Sucralfate 1 gm 03/01/18 17:00 Carafate PO ACHS DENIA Vital Signs: Temp Pulse Resp BP Pulse Ox 03/01/18 11:09 97.5 F L 99 H 16 144/96 H 95 Departure - Departure Time of Disposition: 12:38 Disposition: ADMITTED INPATIENT Discharge Problem: Failure to thrive, Depression Instructions: Depression (ED) Condition: Good Pt referred to PMD for follow-up: Yes IPMP verified?: No Additional Instructions: Please call your Family Physician as soon as possible to schedule a follow-up appointment. Allergies/Adverse Reactions: Allergies No Known Allergies Allergy (Verified 03/01/18 11:23) Home Medications: Ambulatory Orders Citalopram Hydrobromide [Celexa] 40 mg PO DAILY 02/10/16 Clopidogrel Bisulfate [Plavix] 75 mg PO DAILY 01/25/17 Pantoprazole Sodium [Protonix] 40 mg PO BIDAC #60 tablet.dr 08/03/17 Sucralfate Susp [Carafate] 1 gm PO ACHS #120 cup 08/03/17 Tramadol HCl 50 mg PO BID 03/01/18 Discharge Problem: Failure to thrive Qualifiers: Failure to thrive age range: in adult Qualified Code(s): R62.7 - Adult failure to thrive Depression Qualifiers: Depression Type: unspecified Qualified Code(s): F32.9 - Major depressive disorder, single episode, unspecified
[2018-03-01 14:33] VITALS: BMI 22.1
[2018-03-01] MEDS ORDERED: TORADOL IVP STA (15:23)
[2018-03-01] MEDS ORDERED: DECADRON 4 MG/ML SDV IM STA (15:25)
[2018-03-01] MEDS: PROTONIX PO SCH (16:54)
[2018-03-01] MEDS: CARAFATE PO SCH ×2 (16:54→20:09)
[2018-03-01] MEDS: TORADOL IVP SCH (20:09)
[2018-03-02] MEDS: TORADOL IVP SCH ×3 (05:39→20:13)
[2018-03-02] MEDS: CARAFATE PO SCH ×4 (05:39→20:13)
[2018-03-02] MEDS: PROTONIX PO SCH ×2 (05:39→16:53)
[2018-03-02] MEDS: CELEXA PO SCH (08:20)
[2018-03-02] MEDS: PLAVIX PO SCH (08:21)
[2018-03-02] MEDS ORDERED: NON-FORMULARY MEDICATION (Citalopram Hydrobromide [Celexa] 40 MG) PO SCH (09:00)
[2018-03-02] MEDS ORDERED: NORCO 5-325 PO SCH (11:00)
[2018-03-02] MEDS: ATIVAN PO SCH ×2 (11:07→20:13)
[2018-03-02] MEDS: NORCO 5-325 PO SCH ×2 (12:14→20:13)
--- NOTE | 2018-03-02 14:25 | DI ---
EXAM: Two views of the chest. History: Cough. Comparison: Chest radiograph 08/01/2017 Findings: Heart size is within normal limits. Atherosclerotic vascular calcifications. Emphysema a gain noted which is severe. No change in the chronic scarring at the right costophrenic angle. No d efinite acute infiltrates. No appreciable pleural fluid and no acute osseous abnormalities. Impression: No definite acute infiltrates. Severe emphysema. No change compared to the prior study .
--- NOTE | 2018-03-02 14:29 | DI ---
EXAM: Five views of the lumbar spine. History: Lower back pain. Comparison: Lumbar spine radiograph 08/17/2016 Findings: Atherosclerotic vascular calcifications. Stable and grossly intact posterior fusion hardw are of the lumbar spine. No acute fracture or subluxation. Cholecystectomy clips. Mild osteopenia. Impression: No acute osseous abnormality of the lumbar spine. Intact hardware. No change compared to the prior study.
[2018-03-03] MEDS: CARAFATE PO SCH ×4 (06:01→20:23)
[2018-03-03] MEDS: TORADOL IVP SCH ×3 (06:01→20:23)
[2018-03-03] MEDS: PROTONIX PO SCH ×2 (06:02→16:55)
[2018-03-03] MEDS: NORCO 5-325 PO SCH ×2 (08:13→20:23)
[2018-03-03] MEDS: CELEXA PO SCH (08:13)
[2018-03-03] MEDS: ATIVAN PO SCH ×2 (08:13→20:23)
[2018-03-03] MEDS: PLAVIX PO SCH (08:14)
[2018-03-04] MEDS: CARAFATE PO SCH ×2 (05:47→10:41)
[2018-03-04] MEDS: TORADOL IVP SCH (05:48)
[2018-03-04] MEDS: PROTONIX PO SCH (05:48)
[2018-03-04] MEDS: NORCO 5-325 PO SCH (08:12)
[2018-03-04] MEDS: ATIVAN PO SCH (08:12)
[2018-03-04] MEDS: PLAVIX PO SCH (08:12)
[2018-03-04] MEDS: CELEXA PO SCH (08:12)
--- NOTE | 2018-03-04 09:33 | CM.DICTOOL ---
ADMISSION: 03/01/18 12:48 DISCHARGE: 03/04/18 FINAL DIAGNOSIS WEAKNESS DEHYDRATION - RESOLVED FAILURE TO THRIVE (ACUTE) DEPRESSION (ACUTE) HISTORY OF: TIA HISTOPLASMOSIS S/P RIGHT LOBECTOMY H-PYLORI S/P BACK SURGERY DEPRESSION BIPOLAR GERD COPD LAST VITALS Temp Pulse Resp BP Pulse Ox 98.0 F 78 16 127/77 98 03/04/18 05:58 03/04/18 05:58 03/04/18 05:58 03/04/18 05:58 03/04/18 05:58 TAKE THESE MEDICATIONS AT HOME Citalopram Hydrobromide (Celexa) 40 mg PO DAILY [facility] Last Admin: 03/04/18 08:12 Dose: 40 mg Clopidogrel Bisulfate (Plavix) 75 mg PO DAILY [facility] Last Admin: 03/04/18 08:12 Dose: 75 mg Pantoprazole Sodium (Protonix) 40 mg PO BIDAC [facility] Last Admin: 03/04/18 05:48 Dose: 40 mg Sucralfate (Carafate) 1 gm PO ACHS [facility] Last Admin: 03/04/18 05:47 Dose: 1 gm TRAMADOL HCL 50MG PO BID ALLERGIES No Known Allergies Allergy (Verified 03/01/18 11:23) DISCONTINUED HOME MEDICATIONS NONE Discontinued Medications Hydrocodone Bitart/Acetaminophen ([place] 5-325) 1 tab PO Q12H [facility] Last Admin: 03/02/18 11:06 Dose: 1 tab Dexamethasone Sodium Phosphate (Decadron 4 Mg/Ml Sdv) 4 mg IM ONCE STA Stop: 03/01/18 15:26 Last Admin: 03/01/18 15:40 Dose: 4 mg Sodium Chloride (Sodium Chloride) 1,000 mls @ 100 mls/hr IV .Q10H STA Stop: 03/01/18 21:48 Last Admin: 03/01/18 12:25 Dose: 100 mls/hr Ketorolac Tromethamine (Toradol) 30 mg IVP ONCE STA Stop: 03/01/18 15:24 Last Admin: 03/01/18 15:40 Dose: 30 mg NEW PRESCRIPTIONS: NEW MEDICATIONS: 1. ATIVAN 1MG TAKE 1 TABLET DAILY NEEDED FOR ANXIETY. MAY TAKE 1/2 TABLET IN MORNING AND 1/2 TABLET AT BEDTIME. 2. NORCO 5-235MG TAKE 1 TABLET DAILY NEEDED FOR PAIN. MAY TAKE 1/2 TABLET IN MORNING AND 1/2 TABLET AT BEDTIME. SMOKING: ENCOURAGED TO STOP SMOKING DISEASE SPECIFIC EDUCATION: DEHYDRATION DIET ACTIVITY PAIN MANAGEMENT SMOKING CESSATION MEDICATIONS REFUSES PAIN MANAGEMENT LAB REVIEW: 03/04/18 04:30 03/04/18 04:30 03/04/18 04:30: Sodium 139, Potassium 3.6, Chloride 109 H, Carbon Dioxide 21 L, Anion Gap 12.6, BUN 12, Creatinine 0.82, Estimated GFR (MDRD) 96.00, BUN/ Creatinine Ratio 14.63, Glucose 86, Calcium 8.9, Total Bilirubin 0.5, AST 9 L, ALT 7 L, Alkaline Phosphatase 75, Total Protein 6.0, Albumin 3.2 L, Globulin 2.8 , Albumin/Globulin Ratio 1.14 03/04/18 04:30: WBC 6.73, RBC 4.46 L, Hgb 14.8, Hct 41.9 L, MCV 93.9, MCH 33.2 H , MCHC 35.3, RDW Coeff of Luzma 12.6, Plt Count 208, Immature Gran % (Auto) 0.1, Neut % (Auto) 35.4, Lymph % (Auto) 50.2 H, [place] % (Auto) 10.0, Eos % (Auto) 3.6 , Baso % (Auto) 0.7, Immature Gran # (Auto) 0.0, Neut # (Auto) 2.4, Lymph # ( Auto) 3.4, [place] # (Auto) 0.7, Eos # (Auto) 0.2, Baso # (Auto) 0.1 PLAN: DISCHARGE HOME TODAY 03/04/18. CONTINUE HOME MEDICATIONS PER NURSING SHEET. NEW MEDICATIONS: 1. ATIVAN 1MG TAKE 1 TABLET DAILY NEEDED FOR ANXIETY. MAY TAKE 1/2 TABLET IN MORNING AND 1/2 TABLET AT BEDTIME. 2. NORCO 5-235MG TAKE 1 TABLET DAILY NEEDED FOR PAIN. MAY TAKE 1/2 TABLET IN MORNING AND 1/2 TABLET AT BEDTIME. DIET TOLERATED. INCREASE FLUID INTAKE TO AVOID DEHYDRATION. ACTIVITY TOLERATED. [facility] HAS SEEN YOU HERE AT THE HOSPITAL. CONTINUE TO SEE THEM. FOLLOW UP WITH DR. MCCORMICK ON SundayFebruary AT 1030AM. PLEASE CALL TO RESCHEDULE IF UNABLE TO KEEP APPOINTMENT. [phone]. FULL CODE SITTING UP IN BED. ALERT AND ORIENTED X 4. M. POLO OXYGEN EQUIPMENT TECHNICIAN INTO SEE PATIENT. PATIENT STATES PAIN HAS IMPROVED AND SLEEPING SOME BETTER. PLAN OF CARE DISCUSSED PER Regino CUELLAR APRN INCLUDING DISCHARGE. APPETITE IS IMPROVING FROM POOR TO FAIR. VITAL SIGNS ARE STABLE. HAS BEEN AFEBRILE. POX 98% ON ROOM AIR. HEART TONES ARE REGULAR. NO C/O PAIN OR DISCOMFORT. LUNGS ARE CLEAR WITH DIMINISHED BREATH SOUNDS. HAS INTERMITTENT NON-PRODUCTIVE COUGH. NO DYSPNEA NOTED. ABDOMEN IS SOFT, NON-TENDER WITH BOWEL SOUNDS POSITIVE WITHOUT EDEMA. CONTINUES TO C/O BACK PAIN THAT HAS IMPROVED AND HAS USED TORADOL FOR PAIN MANAGEMENT. HAS SALINE LOCK IN RIGHT HAND SITE IS CLEAR. HAS BEEN UP AMBULATING IN [place] WITHOUT DIFFICULTY. IS INDEPENDENT WITH ACTIVITIES OF DAILY LIVING. DR. SERENA MCCORMICK MD Regino CUELLAR APRN
--- NOTE | 2018-03-04 09:41 | HP ---
DATE OF SERVICE: 03/01/18 REASON FOR HOSPITALIZATION/HISTORY OF PRESENT ILLNESS: 63 year old white who walked into the emergency room and stated that he was depressed, feeling very weak. He has had a cough and worsening back pain over the past several days. His just two weeks ago. PAST MEDICAL HISTORY: Severe back pain Weight loss History of H.Pylori Dyslipidemia Depression Bipolar History of CVA with right sided weakness Right lower lobe Histoplasmosis ED Chronic nausea Weight loss PAST SURGICAL HISTORY: Pneumonectomy, right partial lobe Cholecystectomy History of two back surgery History of PFO repair, sees Dr. Pham REVIEW OF SYSTEMS: CONSTITUTIONAL: No night sweats. malaise and weakness. No fever or chills. HEENT: Eyes: No visual changes. No eye pain. No eye discharge. ENT: No runny nose. No epistaxis. No sinus pain. No sore throat. No odynophagia. No ear pain. No congestion. RESPIRATORY: Cough, no congestion. No hemoptysis. No shortness of breath. CARDIOVASCULAR: No angina symptoms. No CHF symptoms. No atypical chest pain for CAD. No palpitations. No PND. No orthopnea. GASTROINTESTINAL: No abdominal pain. No nausea or vomiting. No diarrhea or constipation. No hematemesis. No hematochezia. GENITOURINARY: No urgency. No frequency. No dysuria. No hematuria. No obstructive symptoms. No discharge. No pain. No significant abnormal bleeding. MUSCULOSKELETAL: No musculoskeletal pain. No joint swelling. No arthritis. Back pain. NEUROLOGICAL: No headache. No neck pain. No syncope. No seizures. No dizziness. PSYCHIATRIC: Anxious and tearful. No depression. No suicidal thoughts. No homicidal thoughts. SKIN: No rash. No lesions. No wounds. ENDOCRINE: No unexplained weight loss. No weight gain. HEMATOLOGIC/LYMPHATIC: No anemia. No purpura. No petechiae. No prolonged or excessive bleeding. No palpable lymph nodes. PERSONAL/FAMILY/SOCIAL HISTORY: The patient is recently . He is a heavy smoker, denies any alcohol or illicit drug use. MEDICATIONS: Celexa 40mg PO daily Plavix 75mg PO daily Carafate 1gram PO ACHS Protonix 40mg PO twice a day Tramadol 50mg PO twice a day ALLERGIES: No known allergies. PHYSICAL EXAMINATION: VITAL SIGNS: Temperature 97.5, heart rate 99, respiratory rate 16, blood pressure 144/96 and pulse ox 95% on room air. HEENT: Head normocephalic, atraumatic. Eyes: Extraocular muscles are intact. Pupils are equal, round and reactive to light and accommodation. Ears: No lesions. Nose appeared normal. Throat: No exudate or erythema. NECK: Supple. No JVD, no carotid bruit. No lymphadenopathy or thyromegaly. LUNGS: Diminished breath sounds bilaterally. Clear to auscultation. Percussion note normal. Chest symmetrical. HEART: S1, S2, no S3. No murmurs. No cyanosis or clubbing. No ascites. Pulses: Dorsalis pedis and posterior tibial pulses +1 to +2 bilaterally. ABDOMEN: Soft. Nontender. Bowel sounds active. No CVA tenderness. No mass felt. EXTREMITIES: No edema. Full range of motion of all extremities, equal. NEUROLOGIC: No focal deficit. Cranial nerves II through XII are grossly intact. No headache, no double vision or headache. Flat affect. Anxious. Depressed. SKIN: Not dry. Intact. Turgor - normal. Pale LYMPHATIC: No palpable lymph nodes/no lymphedema. MUSCULOSKELETAL: Normal joints with no swelling. Muscle tone is normal. Weak. LABS: WBC 5.78, hgb 16.4, hct 46.2, plt count 225, sodium 138, potassium 4.3, BUN 8, creatinine 0.95, glucose 106. EKG was normal, chest x-ray shows changes associated with COPD. ASSESSMENT: 1. Failure to thrive 2. Depression 3. COPD with exacerbation 4. Generalized weakness 5. Dyslipidemia 6. Acute back pain 7. History of bipolar disorder 8. CVA with right sided weakness 9. Right lower lobe histoplasmosis 10.Chronic nausea 11.History of H. Pylori 12.Weight loss PLAN: 1. Will admit the patient 2. Normal saline at 75cc an hour 3. Continue home medications 4. Toradol 30mg IV Q 8 hours scheduled for back pain 5. Chest x-ray and EKG 6. Routine telemetry orders 7. CBC and CMP daily 8. Will make referral to [facility] 9. The patient is no suicidal and no homicidal or suicidal ideations he states Will follow closely. TIME SPENT: More than 70 minutes. [facility]
[2018-03-04 09:42] VITALS: BP 130/82; TEMP 98.3
--- NOTE | 2018-03-04 09:54 | PCM.PROG ---
Attending Provider: ATTENDING PROVIDER: Dr. SERENA MCCORMICK This patient is seen with Anika Dang, Nurse Practitioner. DATE OF SERVICE: 03/04/18 SUBJECTIVE: This 63 year old WHITE/ M was hospitalized 03/01/18. The patient is sitting up in bed, alert. He states he is sleeping better. Discussed with [facility]. The patient is agreeable. He states he is wanting to go home. Less tearful and anxious. The pain seems to be controlled. REVIEW OF SYSTEMS: CONSTITUTIONAL: No night sweats. No fatigue, malaise, lethargy. No fever or chills. HEENT: Eyes: No visual changes. No eye pain. No eye discharge. ENT: No runny nose. No epistaxis. No sinus pain. No odynophagia. No congestion. RESPIRATORY: No cough, no congestion. No hemoptysis. No shortness of breath. CARDIOVASCULAR: No angina symptoms. No CHF symptoms. No atypical chest pain for CAD. No palpitations. No orthopnea.. GASTROINTESTINAL: No abdominal pain. No nausea or vomiting. No diarrhea or constipation. No hematemesis. No hematochezia. GENITOURINARY: No urgency. No frequency. No dysuria. No hematuria. No obstructive symptoms. No discharge. No pain. No significant abnormal bleeding. MUSCULOSKELETAL: Back pain. NEUROLOGICAL: Awake, alert, oriented to time, place and person. No headache. No neck pain. No syncope. No seizures. No dizziness. PSYCHIATRIC: Anxiety and depression. No suicidal or homicidal ideation. SKIN: No rash. No lesions. No wounds. ENDOCRINE: No unexplained weight loss. No weight gain. HEMATOLOGIC/LYMPHATIC: No anemia. No purpura. No petechiae. No prolonged or excessive bleeding. No palpable lymph nodes. PHYSICAL EXAMINATION: GENERAL: The patient is awake, alert and oriented, sitting in bed in no distress. VITAL SIGNS: Temperature 98.0 F, Pulse 78, Respiratory Rate 16, BP 127/77, Pulse Ox 98% HEENT: Head normocephalic, atraumatic. Eyes: Extraocular muscles are intact. Pupils are equal, round and reactive to light and accommodation. Ears: No lesions. Nose appeared normal. Throat: No exudate or erythema. NECK: Supple. No JVD, no carotid bruit. No lymphadenopathy or thyromegaly. LUNGS: Diminished breath sounds bilaterally. Clear to auscultation. Percussion note normal. Chest symmetrical. HEART: S1, S2, no S3. No murmurs. No cyanosis or clubbing. No ascites. Pulses: Dorsalis pedis and posterior tibial pulses +1 to +2 both sides. ABDOMEN: Soft. Non-tender. Bowel sounds active. No CVA tenderness. No mass felt. EXTREMITIES: No edema. Full range of motion of all extremities, equal. NEUROLOGIC: No focal deficit. Cranial nerves II through XII are grossly intact. No headache, no double vision or headache. SKIN: Not dry. Intact. Turgor-normal. LYMPHATIC: No palpable lymph nodes/no lymphedema. MUSCULOSKELETAL: Normal joints with no swelling. Muscle tone is normal. LAB REVIEW: 03/04/18 04:30 03/04/18 04:30 03/04/18 04:30: Sodium 139, Potassium 3.6, Chloride 109 H, Carbon Dioxide 21 L, Anion Gap 12.6, BUN 12, Creatinine 0.82, Estimated GFR (MDRD) 96.00, BUN/ Creatinine Ratio 14.63, Glucose 86, Calcium 8.9, Total Bilirubin 0.5, AST 9 L, ALT 7 L, Alkaline Phosphatase 75, Total Protein 6.0, Albumin 3.2 L, Globulin 2.8 , Albumin/Globulin Ratio 1.14 03/04/18 04:30: WBC 6.73, RBC 4.46 L, Hgb 14.8, Hct 41.9 L, MCV 93.9, MCH 33.2 H , MCHC 35.3, RDW Coeff of Luzma 12.6, Plt Count 208, Immature Gran % (Auto) 0.1, Neut % (Auto) 35.4, Lymph % (Auto) 50.2 H, Rowan % (Auto) 10.0, Eos % (Auto) 3.6 , Baso % (Auto) 0.7, Immature Gran # (Auto) 0.0, Neut # (Auto) 2.4, Lymph # ( Auto) 3.4, Rowan # (Auto) 0.7, Eos # (Auto) 0.2, Baso # (Auto) 0.1 ASSESSMENT: 1. DEPRESSION AND ANXIETY, WORSENED BY RECENT LOSS OF SPOUSE 2. HISTORY OF DEPRESSION AND BIPOLAR DISORDER, NO LONGER SEES PSYCHIATRIST 3. CHRONIC BACK PAIN 4. SEVERE COPD 5. HEAVY SMOKER PLAN: 1. Refer to [facility], patient agreeable, behavior normal. 2. Possible referral to Pain Management 3. Information regarding smoking cessation given 4. Ativan 1 mg daily; take 1/2 in the daytime and 1/2 at nighttime if needed, # 15 5. Sunshine 5/325 one daily again, can break in half #15 6. Refer to [facility] Plan and coordination of the patient's care discussed in the presence of [employer] [facility] and nurse. CONDITION: Stable SCRIBED BY: CARMELO MOHAMUD Riveter scribed while in presence of service performed by Dr. Mccormick/Anika Dang APRN on 03/04/18 ([id number])
--- NOTE | 2018-03-04 15:16 | PN ---
DATE OF SERVICE: 03/02/18 SUBJECTIVE: The patient examined and he is continuing to complain of back pain, he is very tearful and upset through the night. He did not sleep very well. He is not wanting eat. They didn't do any x-rays in the emergency room so I will do a chest x-ray and L spine x-ray today. He is receiving Toradol 30mg IV Q 8 hours and we will additional medication. I do believe that he will end up being a candidate for [facility]. He does see a psychiatrist due to history of mental illness; schizophrenia, depression and anxiety and we will instruct him that he needs to follow up with his psychiatrist as well. REVIEW OF SYSTEMS: CONSTITUTIONAL: No night sweats. No fatigue, malaise, lethargy. No fever or chills. HEENT: Eyes: No visual changes. No eye pain. No eye discharge. ENT: No runny nose. No epistaxis. No sinus pain. No sore throat. No odynophagia. No congestion. RESPIRATORY: No cough, no congestion. No hemoptysis. No shortness of breath. CARDIOVASCULAR: No angina symptoms. No CHF symptoms. No atypical chest pain for CAD. No palpitations. No orthopnea. GASTROINTESTINAL: No abdominal pain. No nausea or vomiting. No diarrhea or constipation. No hematemesis. No hematochezia. Loss of appetite GENITOURINARY: No urgency. No frequency. No dysuria. No hematuria. No obstructive symptoms. No discharge. No pain. No significant abnormal bleeding. MUSCULOSKELETAL: No musculoskeletal pain; no joint swelling. Generalized weakness. NEUROLOGICAL: No headache. No neck pain. No syncope. No seizures. No dizziness. PSYCHIATRIC: Anxious. Depression. No suicidal thoughts. No homicidal thoughts. SKIN: No rash. No lesions. No wounds. ENDOCRINE: No unexplained weight loss. No weight gain. HEMATOLOGIC/LYMPHATIC: No anemia. No purpura. No petechiae. No prolonged or excessive bleeding. No palpable lymph nodes. PHYSICAL EXAMINATION: GENERAL: The patient is alert and oriented, tearful, anxious. HEENT: Head normocephalic, atraumatic. Eyes: Extraocular muscles are intact. Pupils are equal, round and reactive to light and accommodation. Ears: No lesions. Nose appeared normal. Throat: No exudate or erythema. NECK: Supple. No JVD, no carotid bruit. No lymphadenopathy or thyromegaly. LUNGS: Diminished breath sounds bilaterally. Clear to auscultation. Percussion note normal. Chest symmetrical. HEART: S1, S2, no S3. No murmurs. No cyanosis or clubbing. No ascites. Pulses: Dorsalis pedis and posterior tibial pulses +1 to +2 both sides. ABDOMEN: Soft. Nontender. Bowel sounds active. No CVA tenderness. No mass felt. EXTREMITIES: No edema. Full range of motion of all extremities, equal. NEUROLOGIC: No focal deficit. Cranial nerves II through XII are grossly intact. No headache, no double vision or headache. SKIN: Not dry. Intact. Turgor - normal. LYMPHATIC: No palpable lymph nodes/no lymphedema. MUSCULOSKELETAL: Normal joints with no swelling. Muscle tone is normal. ASSESSMENT: 1. Acute generalized weakness. 2. Dehydration 3. Failure to thrive 4. Depression 5. Anxiety 6. Acute low back pain PLAN: 1. Will do chest x-ray and L-spine x-ray today 2. Will start him on [place] 5mg twice a day scheduled 3. Ativan 0.5mg in the morning now and then he can get 1mg tonight as he has not been sleeping 4. We have discussed therapy and Mental Health evaluation, he is agreeable to both of these 5. We will hope to achieve some pain control 6. He does have a history of back pain likely has been flared up by all the stressors that he has going on at home as his just on Hospice two weeks ago. TIME SPENT: More than 30 minutes. Plan and coordination of the patient's care discussed in the presence of nurse. TRESSA
--- NOTE | 2018-03-04 15:21 | PN ---
DATE OF SERVICE: 03/02/18 SUBJECTIVE: 63 year old white male hospitalized with weakness, dehydration and failure to thrive. The patient lost his and since he hasn't been taken care of by anyone. He is just feeling lonely and no evidence of suicidal or homicidal tendency. The patient's condition otherwise is improving. His strength has improved. The patient was seen and examined with Nurse Practitioner. TIME SPENT: More than 30 minutes. Plan and coordination of the patient's care discussed in the presence of nurse. TRESSA
--- NOTE | 2018-03-04 15:25 | PN ---
DATE OF SERVICE: 03/03/18 SUBJECTIVE: 63 year old white male hospitalized with weakness, dehydration and failure to thrive. The patient's condition has slowly improved. His Celexa has been continued to 40mg. He was continued on Hydrocodone and Tylenol for his pain and has been added anxiety. His overall cardiovascular status and respiratory status has improved. His strength has improved and his hydration status has improved. Condition is stable REVIEW OF SYSTEMS: CONSTITUTIONAL: No night sweats. No fatigue, malaise, lethargy. No fever or chills. HEENT: Eyes: No visual changes. No eye pain. No eye discharge. ENT: No runny nose. No epistaxis. No sinus pain. No sore throat. No odynophagia. No congestion. RESPIRATORY: No cough, no congestion. No hemoptysis. No shortness of breath. CARDIOVASCULAR: No angina symptoms. No CHF symptoms. No atypical chest pain for CAD. No palpitations. No orthopnea. GASTROINTESTINAL: No abdominal pain. No nausea or vomiting. No diarrhea or constipation. No hematemesis. No hematochezia. GENITOURINARY: No urgency. No frequency. No dysuria. No hematuria. No obstructive symptoms. No discharge. No pain. No significant abnormal bleeding. MUSCULOSKELETAL: No musculoskeletal pain; no joint swelling. NEUROLOGICAL: No headache. No neck pain. No syncope. No seizures. No dizziness. PSYCHIATRIC: Not anxious. No depression. No suicidal thoughts. No homicidal thoughts. SKIN: No rash. No lesions. No wounds. ENDOCRINE: No unexplained weight loss. No weight gain. HEMATOLOGIC/LYMPHATIC: No anemia. No purpura. No petechiae. No prolonged or excessive bleeding. No palpable lymph nodes. PHYSICAL EXAMINATION: VITAL SIGNS: Temperature 97.6, pulse 60, respiratory rate 18, blood pressure 125 /85 and pulse ox 99% HEENT: Head normocephalic, atraumatic. Eyes: Extraocular muscles are intact. Pupils are equal, round and reactive to light and accommodation. Ears: No lesions. Nose appeared normal. Throat: No exudate or erythema. NECK: Supple. No JVD, no carotid bruit. No lymphadenopathy or thyromegaly. LUNGS: Clear to auscultation. Percussion note normal. Chest symmetrical. HEART: S1, S2, no S3. No murmurs. No cyanosis or clubbing. No ascites. Pulses: Dorsalis pedis and posterior tibial pulses +1 to +2 both sides. ABDOMEN: Soft. Nontender. Bowel sounds active. No CVA tenderness. No mass felt. EXTREMITIES: No edema. Full range of motion of all extremities, equal. NEUROLOGIC: No focal deficit. Cranial nerves II through XII are grossly intact. No headache, no double vision or headache. SKIN: Not dry. Intact. Turgor - normal. LYMPHATIC: No palpable lymph nodes/no lymphedema. MUSCULOSKELETAL: Normal joints with no swelling. Muscle tone is normal. LABS: Hgb 14.2, hct 40, WBC 6,200 normal differential, creatinine 0.9, BUN 14, potassium 4 TIME SPENT: More than 30 minutes. Plan and coordination of the patient's care discussed in the presence of nurse. TRESSA
--- NOTE | 2018-03-04 15:58 | DS ---
DATE OF SERVICE: 03/04/18 FINAL DIAGNOSIS: 1. Weakness 2. Dehydration-resolved 3. Failure to thrive (acute) 4. Depression (acute) 5. History of TIA 6. Histoplasmosis 7. Status right lobectomy 8. H. Pylori 9. Status post back surgery 10.Depression 11.Bipolar 12.GERD 13.COPD LAST VITALS: Temperature 98, pulse 78, respiratory rate 16, blood pressure 127/77 and pulse ox 98% DISCHARGE INSTRUCTIONS: Discharge home today. Continue home medications per nursing sheet. [facility] has seen here at the hospital. Continue to see them. Followup with Dr. Mayer on SundayMarch 11 at 1030am. Please call to reschedule if unable to keep appointment. MEDICATIONS AT DISCHARGE: Celexa 40mg PO daily Plavix 75mg PO daily Protonix 40g PO twice a day Carafate 1gram PO ACHS Tramadol 50mg PO twice a day ALLERGIES: No known allergies NEW PRESCRIPTIONS: Ativan 1mg Take one tablet daily as needed for anxiety. May take half tablet in morning and half tablet at bedtime Paris 5-325mg take one tablet daily as needed for pain. May take half tablet in morning and half tablet at bedtime DIET INSTRUCTIONS: Increase fluid intake to avoid dehydration ACTIVITY: As toleration SMOKING: Encouraged to stop smoking DISEASE SPECIFIC EDUCATION: Dehydration Diet Activity Pain Management HOSPITAL COURSE: 63 year old white male who presented to the emergency room experiencing generalized weakness, weight loss, nausea and back pain. He recently lost his two weeks ago. She had been under Hospice Care for sometime. He was admitted and given IV fluids, normal saline at 75cc an hour. He was tachycardiac on admission showing signs of dehydration. He has been Celexa for depression. He was very tearful and anxious. We started him on Ativan 0.5mg in the morning and 1mg in the evening and this seemed to work well for him. X-ray' s of the L spine were done which showed degenerative changes. He has perviously seen Pain Management but refuses to go back. We did start him on [place] 5mg twice a day PRN. His pain seemed to be controlled with the Paris. Again, he did refuse Pain Management. We will send him home with Paris 5mg to take daily PRN # 15. He has agreed to see [facility] and meet with them regarding depression and anxiety. We will given Ativan 1mg PO daily. He can take half in the morning and half in evening if he needs to, he was given 15 of these. He is exhibiting normal behavior. His pain has been controlled, he is not tearful today. Yesterday he was less tearful and he has been sleeping better. He has no suicidal or homicidal ideations. Again, he is agreeable to [facility]. Chest x-ray was normal. He is heavy smoker and information has been given regarding smoking cessation. We will followup with him in the office next week. TIME SPENT: More than 60 minutes. TRESSA
--- NOTE | 2018-03-05 11:52 | PN ---
DATE OF SERVICE: 03/04/18 SUBJECTIVE: The patient was seen and examined with the nurse practitioner. His condition is stable. His cardiovascular status and respiratory status is stable. He is being referred to [facility]. The patient does not have any suicidal or homicidal ideas. His and he depended on her for most of his daily activities of living but he will have to start doing it on his own. He is going through grieving process. Ativan is helping him. TIME SPENT: More than 30 minutes. Plan and coordination of the patient's care discussed in the presence of nurse. TRESSA
== END 2018-03-04 10:50 | disposition home or self-care (01) | DRG 881 ==
LOC: ED 11:08 → MEDSURG A 12:48
PROVIDERS: ADMIT Internal Medicine; ATTEND Internal Medicine
DX: F32.9 Major depressive disorder, single episode, unspecified (principal); F41.8 Other specified anxiety disorders; F31.9 Bipolar disorder, unspecified; M54.9 Dorsalgia, unspecified; R63.4 Abnormal weight loss; R53.1 Weakness; R11.0 Nausea; E86.0 Dehydration; E78.5 Hyperlipidemia, unspecified; J44.9 Chronic obstructive pulmonary disease, unspecified
CPT/HCPCS: 36415; 80053; 81001; 85025; 93005; 93010; 96360; 96361; 97802; 99284

== ENCOUNTER 2018-03-15 10:00 | Outpatient (RCR) | END 2018-03-22 23:59 | LOC: NEWBEG 10:00 | PROVIDERS: ATTEND Psychiatry & Neurology Psychiatry | DX: F33.2 Major depressive disorder, recurrent severe without psychotic features (principal); F41.9 Anxiety disorder, unspecified | CPT/HCPCS: 90792; 90853; 99214 ==

== ENCOUNTER 2018-04-16 09:30 | Outpatient (RCR) | payer OTHER | END 2018-04-21 23:59 | LOC: NEWBEG 09:30 | PROVIDERS: ATTEND Psychiatry & Neurology Psychiatry | DX: F33.2 Major depressive disorder, recurrent severe without psychotic features (principal); F41.9 Anxiety disorder, unspecified | CPT/HCPCS: 90832; 90834; 90837; 99214 ==

== ENCOUNTER 2018-05-21 10:00 | Outpatient (RCR) | END 2018-05-22 23:59 | LOC: NEWBEG 10:00 | PROVIDERS: ATTEND Psychiatry & Neurology Psychiatry | DX: F33.2 Major depressive disorder, recurrent severe without psychotic features (principal); F41.9 Anxiety disorder, unspecified | CPT/HCPCS: 90832; 90834; 90837; 99214 ==

== ENCOUNTER 2018-07-09 09:45 | Outpatient (RCR) | END 2018-07-22 23:59 | LOC: NEWBEG 09:45 | PROVIDERS: ATTEND Psychiatry & Neurology Psychiatry | DX: F33.2 Major depressive disorder, recurrent severe without psychotic features (principal); F41.9 Anxiety disorder, unspecified | CPT/HCPCS: 90834; 90837; 99213 ==

== ENCOUNTER 2018-08-06 10:00 | Outpatient (RCR) | END 2018-08-22 23:59 | LOC: NEWBEG 10:00 | PROVIDERS: ATTEND Psychiatry & Neurology Psychiatry | DX: F33.2 Major depressive disorder, recurrent severe without psychotic features (principal); F41.9 Anxiety disorder, unspecified | CPT/HCPCS: 90834; 90837; 99213 ==

== ENCOUNTER 2018-08-27 10:41 | Emergency (ER) | payer OTHER ==
[2018-08-27 10:50] VITALS: BP 166/108; TEMP 96.8; BMI 24.6
[2018-08-27] MEDS ORDERED: ZESTRIL PO STA (10:56)
--- NOTE | 2018-08-27 11:05 | ED.PDOC ---
General ED Provider: Dr. SERGIO TATE Chief Complaint: Hypertension Stated Complaint: hypertension Time Seen by Physician: 10:45 (no chest pain) Mode of Arrival: Walk-In Information Source: Patient Exam Limitations: No limitations Primary Care Provider: SERENA MCCORMICK Nursing and Triage Documentation Reviewed and Agree: Yes Does patient meet sepsis criteria?: Yes If yes, has appropriate treatment been initiated?: No System Inflammatory Response Syndrome: Not Applicable Sepsis Protocol: For patient's 13 years and over: Temp is 96.8 and below OR 101 and greater Pulse >90 BPM Resp >20/minute Acutely Altered Mental Status Are patient's symptoms suggestive of a new infection, such as: -Pneumonia -Skin, Soft Tissue -Endocarditis -UTI -Bone, Joint Infection -Implantable Device -Acute Abdominal Infection -Wound Infection -Meningitis -Blood Stream Catheter Infection -Unknown Cardiovascular Complaint Exam - Hypertension Complaint/Exam Symptoms Are: Still present Timing: Constant Reported B/P Prior to Arrival: 170/100 Aggravating: Reports: None Alleviating: Reports: None Associated Signs and Symptoms: Denies: Chest pain, Vision changes, Anxiety, Recent stress, Headache, Numbness, Tingling, Weakness, Dizziness, Short of air, Swelling Related Surgical History: Reports: None Recent Change in Medications: No A/V Nicking: No Papilledema Present: No JVD Present: No Carotid Bruit Present: No Femoral Pulses Bounding: No Differential Diagnoses: Hypertension Review of Systems - Review Of Systems Constitutional: Reports: No symptoms Eyes: Reports: No symptoms Ears, Nose, Mouth, Throat: Reports: No symptoms Respiratory: Reports: No symptoms Cardiac: Reports: No symptoms GI: Reports: No symptoms : Reports: No symptoms Musculoskeletal: Reports: No symptoms Skin: Reports: No symptoms Neurological: Reports: No symptoms Endocrine: Reports: No symptoms Hematologic/Lymphatic: Reports: No symptoms All Other Systems: Reviewed and Negative Past Medical History - Past Medical History Previously Healthy: Yes Endocrine: Reports: None Cardiovascular: Reports: None Respiratory: Reports: None Hematological: Reports: None Gastrointestinal: Reports: None Genitourinary: Reports: None Neuro/Psych: Reports: None Musculoskeletal: Reports: None Cancer: Reports: None - Surgical History General Surgical History: Reports: None - Family History Family History: Reports: None - Social History Smoking Status: Current every day smoker, Heavy tobacco smoker Hx Substance Use: No Alcohol Screening: None Physical Exam - Physical Exam Appearance: Well-appearing, No pain distress, Well-nourished Eyes: VENKAT, EOMI, Conjunctiva clear ENT: Ears normal, Nose normal, Oropharynx normal Respiratory: Airway patent, Breath sounds clear, Breath sounds equal, Respirations nonlabored Cardiovascular: RRR, Pulses normal, No rub, No murmur GI/: Soft, Nontender, No masses, Bowel sounds normal, No Organomegaly Musculoskeletal: Normal strength, ROM intact, No edema, No calf tenderness Skin: Warm, Dry, Normal color Neurological: Sensation intact, Motor intact, Reflexes intact, Cranial nerves intact, Alert, Oriented Psychiatric: Affect appropriate, Mood appropriate Critical Care Note - Critical Care Note Total Time (mins): 0 Course - Course Orders, Labs, Meds: Orders Category Date Time Status Lisinopril [Zestril] MEDS 08/27/18 10:56 Discontinued 20 mg PO ONCE STA Medications Discontinued Medications Generic Name Dose Route Start Last Admin Trade Name Freq PRN Reason Stop Dose Admin Lisinopril 20 mg 08/27/18 10:56 08/27/18 11:07 Zestril PO 08/27/18 10:57 20 mg ONCE STA Administration Vital Signs: Temp Pulse Resp BP Pulse Ox 08/27/18 10:42 96.8 F L 83 20 166/108 H 94 L AMARI Risk Score AMARI Risk Score: Risk Score Odds of by 30D 0 0.1 (0.1-0.2) 1 0.3 (0.2-0.3) 2 0.4 (0.3-0.5) 3 0.7 (0.6-0.9) 4 1.2 (1.0-1.5) 5 2.2 (1.9-2.6) 6 3.0 (2.5-3.6) 7 4.8 (3.8-6.1) Departure - Departure Time of Disposition: 12:09 Disposition: HOME SELF-CARE Discharge Problem: Hypertension Qualifiers: Hypertension type: unspecified Qualified Code(s): I10 - Essential (primary) hypertension Instructions: Chronic Hypertension (ED) Condition: Good Pt referred to PMD for follow-up: Yes IPMP verified?: No Additional Instructions: Please call your Family Physician as soon as possible to schedule a follow-up appointment.high blood pressure is known as the SILENT KILLER. TAKE THIS ISSUE SERIOUSLY SEE YOUR MD Allergies/Adverse Reactions: Allergies No Known Allergies Allergy (Verified 03/01/18 11:23) Home Medications: Ambulatory Orders Citalopram Hydrobromide [Celexa] 40 mg PO DAILY 02/10/16 Clopidogrel Bisulfate [Plavix] 75 mg PO DAILY 01/25/17 Pantoprazole Sodium [Protonix] 40 mg PO BIDAC #60 tablet. 08/03/17 Sucralfate Susp [Carafate] 1 gm PO ACHS #120 cup 08/03/17 Tramadol HCl 50 mg PO BID 03/01/18 Hydrocodone Bit/Acetaminophen [[place] 5-325] 1 each PO DAILY PRN #15 tablet 03/04 Lorazepam [Ativan] 1 mg PO DAILY PRN #15 tablet 03/04/18 Lisinopril [Prinivil] 20 mg PO DAILY 7 Days #7 tablet 08/27/18 Disposition Discussed With: Patient
== END 2018-08-27 12:13 | disposition home or self-care (01) ==
LOC: ED 10:41
DX: I10 Essential (primary) hypertension (principal); Z79.899 Other long term (current) drug therapy; F17.210 Nicotine dependence, cigarettes, uncomplicated; F33.2 Major depressive disorder, recurrent severe without psychotic features; F41.9 Anxiety disorder, unspecified
CPT/HCPCS: 90834; 99283

== ENCOUNTER 2018-09-10 10:00 | Outpatient (RCR) | END 2018-09-19 23:59 | LOC: NEWBEG 10:00 | PROVIDERS: ATTEND Psychiatry & Neurology Psychiatry | DX: F33.2 Major depressive disorder, recurrent severe without psychotic features (principal); F41.9 Anxiety disorder, unspecified | CPT/HCPCS: 90832; 90834; 99213 ==

== ENCOUNTER 2018-10-18 10:30 | Outpatient (RCR) | END 2018-10-20 23:59 | LOC: NEWBEG 10:30 | PROVIDERS: ATTEND Psychiatry & Neurology Psychiatry | DX: F33.2 Major depressive disorder, recurrent severe without psychotic features (principal); F41.9 Anxiety disorder, unspecified | CPT/HCPCS: 90832; 90837; 99213 ==

== ENCOUNTER 2018-11-19 10:00 | Outpatient (RCR) | END 2018-11-19 23:59 | LOC: NEWBEG 10:00 | PROVIDERS: ATTEND Psychiatry & Neurology Psychiatry | DX: F33.2 Major depressive disorder, recurrent severe without psychotic features (principal); F41.9 Anxiety disorder, unspecified | CPT/HCPCS: 90834; 90837; 99213 ==

== ENCOUNTER 2018-12-18 08:49 | Outpatient (CLI) ==
--- NOTE | 2018-12-18 14:18 | CT ---
EXAM: CT of the chest with and without contrast History: Cough, history smoking Comparison: Chest CT 02/01/2017 Technique: Multiplanar CT images through the thorax were obtained with and without the administratio n of IV contrast Findings: Coronary artery calcifications. Heart size is normal. Great vessels are unremarkable. N o axillary lymphadenopathy. No pathologically enlarged mediastinal or hilar lymph nodes. Severe emp hysema again noted. No focal consolidation. No appreciable pleural fluid and no pneumothorax. No s uspicious lung masses or lung nodules. Scarring is again seen at the lung bases. There is debris se en within the right mainstem bronchus. Within the visualized upper abdomen, status post cholecystectomy. No acute osseous abnormalities. Impression: 1. No acute intrathoracic process. 2. No malignant findings. 3. Severe emphysema. 4. Coronary artery disease. 5. There is debris within the right mainstem bronchus
== END 2018-12-18 08:50 | disposition home or self-care (01) ==
LOC: RAD 08:49
PROVIDERS: ATTEND Internal Medicine
DX: R05 Cough (principal); F17.210 Nicotine dependence, cigarettes, uncomplicated
CPT/HCPCS: 36415; 82565

== ENCOUNTER 2018-12-20 10:00 | Outpatient (RCR) | END 2018-12-20 23:59 | LOC: NEWBEG 10:00 | PROVIDERS: ATTEND Psychiatry & Neurology Psychiatry | DX: F33.2 Major depressive disorder, recurrent severe without psychotic features (principal); F41.9 Anxiety disorder, unspecified | CPT/HCPCS: 90832; 99213 ==

== ENCOUNTER 2019-03-21 11:15 | Outpatient (RCR) | payer OTHER | END 2019-03-22 23:59 | LOC: NEWBEG 11:15 | PROVIDERS: ATTEND Psychiatry & Neurology Psychiatry | DX: F33.2 Major depressive disorder, recurrent severe without psychotic features (principal); F41.9 Anxiety disorder, unspecified | CPT/HCPCS: 90834; 99213 ==